=== PATIENT | female | born 1990 | race Caucasian/White ===

== ENCOUNTER 2019-10-29 12:49 | Emergency (ER) | payer SELFPAY ==
[2019-10-29 13:03] VITALS: BMI 41.5
[2019-10-29 13:06] VITALS: BP 99/72; PULSE 75; RESP 16; TEMP 37.1; O2SAT 97
[2019-10-29 13:53] LABS: HCG Qualitative Urine. Negative (Negative)
[2019-10-29 13:54] LABS: Urine Color Brown (Yellow)
[2019-10-29 13:55] LABS: Add Urine Microscopic? YES; Bilirubin Urine Neg (NEGATIVE); Blood Urine 3+ (Negative); Glucose Urine UA Norm (Normal); Ketones Urine Negative (Negative); Leukocyte Esterase Urine Negative (Negative); Nitrate Urine Negative (Negative); Protein Urine 1+ (Negative); Specific Gravity, Urine 1.025 (1.005-1.030); Urine Appearance Cloudy (CLEAR); Urobilinogen Urine Norm (Negative)
[2019-10-29 14:04] LABS: Bacteria Urine 1+; Mucus Urine 1+; RBC Urine >100 /hpf (0-2)
[2019-10-29 14:05] LABS: Add Urine Culture? Yes
[2019-10-29 14:22] LABS: Basophils % 0.5 %; Eosinophils # 0.1 10^3/uL (0.0-0.8); Eosinophils % 1.5 %; Hematocrit 42.4 % (37.0-47.0); Hemoglobin 13.4 g/dL (11.5-15.3); Lymphocytes # 2.6 10^3/uL (0.8-4.8); Lymphocytes % 31.6 %; Mean Corpuscular HGB Conc 31.6 g/dL (30.0-36.0); Mean Corpuscular Hemoglobin 29.3 pg (28.0-34.0); Mean Corpuscular Volume 92.8 fL (81-99); Mean Platelet Volume 10.2 fL (7.4-10.4); Monocytes # 0.5 10^3/uL (0.2-0.9); Monocytes % 5.6 %; Neutrophils % 60.7 %; Nucleated Red Blood Cells % 0 %; Platelet Count 315 10^3/cmm (130-400); Red Blood Count 4.57 10^6/uL (4.1-5.3); Red Cell Distribution Width 12.8 % (12.1-15.1); White Blood Count 8.2 10^3/uL (4.0-10.0)
--- NOTE | 2019-10-29 14:25 | ED_ITS ---
HPI - Female Genitourinary General: Chief complaint: Back Pain/Injury Stated complaint: kidney pain/problems Time Seen by Provider: 10/29/19 14:14 Source: patient Mode of arrival: ambulatory Limitations: no limitations History of Present Illness: HPI Narrative: Patient is a nice 28-year-old female who presents to ED today with complaints of noticing dark urine this morning. She tells me she is also noticed some pain to her lower back although states this is common for her as she often suffers from lower back pain. She tells me she is having some urethral burning with urination and feels like she is going more often. She is not having any flank pain. She has not been running fevers. No history of nephrolithiasis or ureterolithiasis. She has had no recent injury, trauma, recent catheterization. She states LMP was 3 weeks ago and denies vaginal bleeding. She is not having any vaginal discharge. MD elicited complaint: dysuria and other (dark urine, urinary frequency ) Onset (ago): hour(s) Associated symptoms: Deny abdominal pain, nausea or vaginal discharge Date of Last Menstrual Period: 10/15/19 Review of Systems Const: Denies: fever(s), chills or body aches Eyes: Denies: change in vision, blurry vision, floaters or seeing flashes Card: Denies: chest pain Resp: Denies: dyspnea GI: Denies: abdominal pain, nausea, vomiting, diarrhea or change in bowel habits : Reports: dysuria, urinary frequency and hematuria ( dark urine per patient); Denies: flank pain, difficulty voiding, urinary urgency, urinary hesitancy, dribbling, nocturia, oliguria, urinary incontinence, vaginal odor, vaginal bleeding, vaginal discharge or pelvic pain Musc: Reports: back pain (chronic lower back pain) Skin/Breast: Denies: rash PFS ED PFSH: Medical History (Updated 10/29/19 @ 15:17 by RACIEL Singh) Complication of section wound X 2 Social History (Updated 05/09/19 @ 11:35 by Cody Huddleston LPN) Smoking and tobacco status: never smoked Second hand smoke exposure: No Smoking risk assessment/counseling performed?: No Female Reproductive History: Date of last menstrual period: 10/15/19 Physical Exam Const: COMMON NORMALS: no acute distress, patient oriented x3, no limitations and alert HENMT: COMMON NORMALS: normocephalic and atraumatic HEAD & SCALP: normocephalic and atraumatic Resp: COMMON NORMALS: normal respiratory effort and clear to auscultation bilaterally AUSCULTATION: clear to auscultation bilaterally Cardio: COMMON NORMALS: regular rate and regular rhythm RATE: regular rate RHYTHM: regular rhythm GI: COMMON NORMALS: Normal to inspection, nondistended, normoactive bowel sounds present, Soft to palpation, non-tender, No hepatosplenomegaly present and no masses PALPATION: Yes Soft to palpation and Yes No hepatosplenomegaly present : COMMON NORMALS: Yes no CVA tenderness BLADDER/KIDNEY EXAM: Yes no CVA tenderness Back/Pelvis: COMMON NORMALS: no CVA tenderness, thoracic and lumbar spine normal to inspection, no thoracic nor lumbar tenderness, thoraco-lumbar ROM normal and straight leg raise negative bilaterally OTHER: pain in soft tissues across lower back-states this is where she chronically has pain-reports maybe a little worse than baseline Neuro: COMMON NORMALS: patient oriented x3 SENSORIUM/ORIENTATION: Yes alert Course Vital Signs: Vital signs: Vital Signs Temperature 98.8 F 10/29/19 13:06 Pulse Rate 75 10/29/19 13:06 Respiratory Rate 16 10/29/19 13:06 Blood Pressure 99/72 10/29/19 13:06 Pulse Oximetry 97 10/29/19 13:06 MDM - Female MDM Narrative: Medical decision making narrative: Patient clinically appears well. She is not febrile or tachycardic. She has a normal white count. BUN and creatinine are non-concerning at this time. Urine does have gross hematuria. She does have 1+ bacteria, 1+ mucus, and 5-10 WBC. Although this is not overwhelmingly suspicious for UTI this is the most common explanation for her hematuria. She does endorse dysuria and urinary frequency as well. Discussed treating patient with a round of antibiotics and if symptoms do not improve then she needs to follow-up with PCP and see if a referral to urology might be indicated for cystoscopy. Return to ED precautions given. Lab Data: Labs: Lab Results 10/29/19 10/29/19 10/29/19 Range/Units 13:10 13:10 14:15 WBC 8.2 (4.0-10.0) 10^3/ uL RBC 4.57 (4.1-5.3) 10^6/u L Hgb 13.4 (11.5-15.3) g/dL Hct 42.4 (37.0-47.0) % MCV 92.8 (81-99) fL MCH 29.3 (28.0-34.0) pg MCHC 31.6 (30.0-36.0) g/dL RDW 12.8 (12.1-15.1) % Plt Count 315 (130-400) 10^3/c mm MPV 10.2 (7.4-10.4) fL Neut % (Auto) 60.7 % Lymph % (Auto) 31.6 % [place] % (Auto) 5.6 % Eos % (Auto) 1.5 % Baso % (Auto) 0.5 % Neut # (Auto) 5.0 (1.8-7.7) 10^3/u L Lymph # (Auto) 2.6 (0.8-4.8) 10^3/u L [place] # (Auto) 0.5 (0.2-0.9) 10^3/u L Eos # (Auto) 0.1 (0.0-0.8) 10^3/u L Baso # (Auto) 0.0 (0.0-0.1) 10^3/u L Nucleated RBC % (a uto) 0 % Nucleated RBCs # 0.0 /100WBC Sodium (136-145) mmol/L Potassium (3.5-5.1) mmol/L Chloride (98-107) mmol/L Carbon Dioxide (22-29) mmol/L Anion Gap (5-19) BUN (6-20) mg/dL Creatinine (0.5-0.9) mg/dL GFR Calculation (90-130) mL/min Glucose (65-115) mg/dL Calculated Osmolal ity (285-295) mOsm/k g Calcium (8.5-10.5) mg/dL Total Bilirubin (0.15-1.2) mg/dL AST (0-32) U/L ALT (0-33) U/L Alkaline Phosphata se (35-105) IU/L Total Protein (6.6-8.7) g/dL Albumin (3.5-5.2) g/dL Globulin (1.3-4.6) g/dL HCG, Qual Negative (Negative) Urine Color Brown (Yellow) Urine Appearance Cloudy (CLEAR) Urine pH 5.0 (5-7) Ur Specific Gravit y 1.025 (1.005-1.030) Urine Protein 1+ H (Negative) Urine Glucose (UA) Norm (Normal) Urine Ketones Negative (Negative) Urine Blood 3+ H (Negative) Urine Nitrate Negative (Negative) Urine Bilirubin Neg (NEGATIVE) Urine Urobilinogen Norm (Negative) mg/dL Ur Leukocyte Rhea ase Negative (Negative) Urine RBC >100 H (0-2) /hpf Urine WBC 5-10 H (0-5) /hpf Ur Squamous Epith Cells 5-10 H (0-5) Amorphous Sediment Not Reportable Urine Bacteria 1+ H (NONE) Urine Mucus 1+ 07//20 Range/Units 14:15 WBC (4.0-10.0) 10^3/ uL RBC (4.1-5.3) 10^6/u L Hgb (11.5-15.3) g/dL Hct (37.0-47.0) % MCV (81-99) fL MCH (28.0-34.0) pg MCHC (30.0-36.0) g/dL RDW (12.1-15.1) % Plt Count (130-400) 10^3/c mm MPV (7.4-10.4) fL Neut % (Auto) % Lymph % (Auto) % [place] % (Auto) % Eos % (Auto) % Baso % (Auto) % Neut # (Auto) (1.8-7.7) 10^3/u L Lymph # (Auto) (0.8-4.8) 10^3/u L [place] # (Auto) (0.2-0.9) 10^3/u L Eos # (Auto) (0.0-0.8) 10^3/u L Baso # (Auto) (0.0-0.1) 10^3/u L Nucleated RBC % (a uto) % Nucleated RBCs # /100WBC Sodium 136 (136-145) mmol/L Potassium 4.3 (3.5-5.1) mmol/L Chloride 102 (98-107) mmol/L Carbon Dioxide 23 (22-29) mmol/L Anion Gap 15.3 (5-19) BUN 14 (6-20) mg/dL Creatinine 1.1 H (0.5-0.9) mg/dL GFR Calculation 59.1 L (90-130) mL/min Glucose 92 (65-115) mg/dL Calculated Osmolal ity 278 L (285-295) mOsm/k g Calcium 9.4 (8.5-10.5) mg/dL Total Bilirubin 0.2 (0.15-1.2) mg/dL AST 19 (0-32) U/L ALT 18 (0-33) U/L Alkaline Phosphata se 39 (35-105) IU/L Total Protein 7.6 (6.6-8.7) g/dL Albumin 4.4 (3.5-5.2) g/dL Globulin 3.2 (1.3-4.6) g/dL HCG, Qual (Negative) Urine Color (Yellow) Urine Appearance (CLEAR) Urine pH (5-7) Ur Specific Gravit y (1.005-1.030) Urine Protein (Negative) Urine Glucose (UA) (Normal) Urine Ketones (Negative) Urine Blood (Negative) Urine Nitrate (Negative) Urine Bilirubin (NEGATIVE) Urine Urobilinogen (Negative) mg/dL Ur Leukocyte Rhea ase (Negative) Urine RBC (0-2) /hpf Urine WBC (0-5) /hpf Ur Squamous Epith Cells (0-5) Amorphous Sediment Urine Bacteria (NONE) Urine Mucus Discharge Plan Discharge Patient Disposition: Home, Self-Care Clinical Impression: Acute cystitis with hematuria Condition: Stable Prescriptions: New Bactrim DS 800-160 mg tablet 1 tab PO BID 7 Days Qty: 14 RF: 0 No Action cyanocobalamin (vitamin B-12) [Vitamin B-12] 500 mcg tablet 500 mcg PO QAM RF: 0 sertraline [Zoloft] 100 mg tablet 100 mg PO DAILY Qty: 30 RF: 2 hydroxyzine HCl 10 mg tablet 10 mg PO TID PRN (Reason: anxiety) Qty: 90 RF: 2 Nexplanon 68 mg implant 1 implant SUBDERMAL .Once/3 yrs RF: 0 hydroxyzine pamoate 50 mg capsule 50 mg PO BEDTIME PRN (Reason: insomnia) RF: 0 Discharge Orders: Discharge Order (Routine); Ordered 10/29/19 Ordered By: Cammy Paul Referrals: Rehana Jones MD [Primary Care Provider] - Patient Instructions: Urinary Tract Infection in Women (ED), Dysuria (ED) Activity Restrictions/Additional Instructions: As discussed please follow-up with primary care provider if symptoms do not begin to improve despite antibiotic use. Please return to the emergency department for worsening pain, flank pain, fevers, nausea/vomiting, any other concerns you may have. Discharge Date/Time: 10/29/19 15:26 Coding Level of Care Code ED Scientific Glass Blower for Chg Fwd Exam Detailed
[2019-10-29 14:39] LABS: Alanine Aminotransferase 18 U/L (0-33); Albumin Level 4.4 g/dL (3.5-5.2); Alkaline Phosphatase 39 IU/L (35-105); Anion Gap 15.3 (5-19); Blood Urea Nitrogen 14 mg/dL (6-20); Calcium 9.4 mg/dL (8.5-10.5); Carbon Dioxide 23 mmol/L (22-29); Chloride 102 mmol/L (98-107); Globulin 3.2 g/dL (1.3-4.6); Glomerular Filtration Rate 59.1 mL/min (90-130); Glucose 92 mg/dL (65-115); Osmolality Calculated 278 mOsm/kg (285-295); Potassium 4.3 mmol/L (3.5-5.1); Sodium 136 mmol/L (136-145); Total Bilirubin 0.2 mg/dL (0.15-1.2); Total Protein 7.6 g/dL (6.6-8.7)
[2019-10-29 14:59] LABS: Aspartate Amino Transferase 19 U/L (0-32)
[2019-10-29 15:25] VITALS: BP 113/72; PULSE 80; RESP 16
== END 2019-10-29 15:26 | disposition home or self-care (01) ==
PROVIDERS: Emergency Medicine; Emergency Provider Physician Assistant; PCP Family Medicine
DX: N30.01 Acute cystitis with hematuria (principal)
CPT/HCPCS: 12345; 36415; 80053; 81001; 81003; 81025; 85025; 87086; 99281; 99282

== ENCOUNTER → 2020-03-07 13:30 | Outpatient (BNVA) | payer OTHER, SELFPAY | PROVIDERS: Visit Provider Nurse Practitioner Family | DX: Z20.828 Contact with and (suspected) exposure to other viral communicable diseases (principal); Z11.59 Encounter for screening for other viral diseases | CPT/HCPCS: 87635 ==

== ENCOUNTER 2020-10-28 12:36 | Outpatient (CLI) | payer OTHER, SELFPAY ==
--- NOTE | 2020-10-28 12:43 | XR_ITS ---
WS: [id number] Right scapula, 2 views, 10/28/2020 Clinical Data: pain after injury Comparison: None. Findings: No scapular fractures are seen. The AC joint and shoulder joint are unremarkable. The adjacent right ribs are normal. The soft tissues are unremarkable. XR/[place] [id number] Impression: Negative right scapula.
== END 2020-10-28 12:37 | disposition home or self-care (01) ==
LOC: RAD 12:40
PROVIDERS: Visit Provider Nurse Practitioner
DX: M89.8X1 Other specified disorders of bone, shoulder (principal)
CPT/HCPCS: 73010

== ENCOUNTER 2021-03-29 07:21 | Emergency (ER) | payer MEDICAID, SELFPAY ==
[2021-03-29 07:32] VITALS: BP 131/94; PULSE 77; RESP 18; TEMP 37.3; O2SAT 99; BMI 42.3
--- NOTE | 2021-03-29 07:50 | ED_ITS ---
HPI - Extremity Problem General: Chief complaint: Extremity Problem,Nontraumatic Stated complaint: NUMBNESS IN R FOOT & KNEE Time Seen by Provider: 03/29/21 07:22 Source: patient Mode of arrival: ambulatory Limitations: no limitations History of Present Illness: HPI Narrative: Patient is a 30-year-old female who presents to ED today with complaint of numbness to her right lower extremity. Patient states approximately 4 days ago she began noticing some numbness to the dorsum of her right foot. She states numbness has then spread proximally affecting the lateral aspect of her right lower leg. She has not noticed any redness or swelling. No pallor or coolness to the extremity. She has not had any injury or trauma. She does not complain of calf pain. She has no compl aints of back pain. Patient states her brother is a FIGHTING VEHICLE INFANTRYMAN and stated he was concerned for possible diabetes or a DVT thus prompting her visit today. Patient does state diabetes runs in her family but she has not been tested recently for this. She does not have a PCP. Patient has not noticed any weakness to the lower extremities. She states there has been a few times where she has tripped over her own ankle secondary to the paresthesias. No recent illness/no fevers. MD Complaint: other (R LE numbness) Onset (ago): day(s) Location: right and lower extremity Radiation: proximal Relieving factors: nothing Exacerbating factors: nothing Associated symptoms: Reports no associated symptoms; Deny chest pain, fever(s) or rash Review of Systems Const: Denies: fever(s), chills, body aches or fatigue Card: Denies: chest pain Resp: Denies: dyspnea GI: Denies: abdominal pain, nausea, vomiting or diarrhea Musc: Denies: neck pain, back pain, extremity pain, extremity swelling, joint pain, joint swelling, joint redness, joint warmth, joint stiffness, limited range of motion, muscle cramps, muscle weakness or decrease in muscle mass Skin/Breast: Denies: rash Neuro: Reports: numbness in extremities (R LE) and sensory changes; Denies: headache(s), weakness in extremities, lack of coordination, difficulty walking, frequent falls or dizziness [facility] ED PFSH: Medical History Complication of section wound X 2 Family History Grandmother Bleeding disorder maternal Diabetes maternal Stroke paternal Mother Diabetes Heart disease Denies family history of Colon cancer Ovarian cancer Clotting disorder Hyperlipidemia Breast cancer Anesthesia complication Hypertension Uterine cancer Thyroid condition Social History Smoking and tobacco status: never smoked Alcohol intake: never Female Reproductive History: Date of last menstrual period: 10/15/19 Physical Exam Const: COMMON NORMALS: no acute distress, patient oriented x3, no limitations and alert GENERAL APPEARANCE: cooperative NUTRITIONAL APPEARANCE: obese morbidly obese ORIENTATION/CONSCIOUSNESS: Yes awake, Yes oriented to person, Yes oriented to place and Yes oriented to time Back/Pelvis: COMMON NORMALS: thoracic and lumbar spine normal to inspection, no thoracic nor lumbar tenderness and thoraco-lumbar ROM normal LUMBAR SPINE/LOWER BACK: Yes normal to inspection and Yes straight leg raise negative bilaterally PELVIS: Yes buttocks normal SACROILIAC JOINTS: Yes SI joints normal Extremity: COMMON NORMALS: normal to inspection, full ROM, capillary refill normal, no joint enlargement, no clubbing, cyanosis or edema, no calf tenderness and no pedal edema GENERAL: Yes normal exam except as noted Neuro: RAYMUNDO COMA SCALE: document GCS findings [place]an coma scale eye opening: Spontaneous Raymundo coma scale verbal response: Orientated Raymundo coma scale motor response: Obey commands Raymundo coma scale total score: 15 COMMON NORMALS: patient oriented x3, moves all extremities and no focal motor deficits SENSORIUM/ORIENTATION: Yes alert, Yes oriented to person, Yes oriented to place and Yes oriented to time GAIT: Yes Normal gait present MOTOR EXAM: 5/5 motor strength present throughout (slightly decreased strength of R dorsiflexion) DEEP TENDON REFLEXES: Right patellar reflex intensity grade: 2+ and Left patellar reflex intensity grade: 2+ OTHER: patient complains of sensory alterations to the R dorsal/plantar foot and anteriolateral R lower leg below the knee; medial territories seem unaffected there is no swelling to affected leg, no calf pain/negative Thu's, DP/PT pulses and cap refill present and equal bilaterally no foot drop but she does have decreased strength of R dorsiflexion when compared to L, remainder of strength to bilateral LEs appear equal Skin: COMMON NORMALS: no rashes or lesions noted GENERAL SKIN EXAM: no rashes or lesions noted TRAUMA: no lacerations or abrasions Course Vital Signs: Vital signs: Vital Signs Temperature 99.1 F 03/29/21 07:32 Pulse Rate 77 03/29/21 07:32 Respiratory Rate 18 03/29/21 07:32 Blood Pressure 131/94 03/29/21 07:32 Pulse Oximetry 99 03/29/21 07:32 MDM - Extremity (Nontraumatic) MDM Narrative: Medical decision making narrative: Based on patient's history and physical examination I would have a concern for a peroneal/fibular nerve compression. I do not have any concern for arterial occlusion, DVT, acute inflammatory demyelinating process, or infectious etiology. Less likely lumbosacral pathology or diabetic neuropathy. I will have CM set her up with a PCP for further evaluation and possible referral for nerve conduction studies. Return to ED precautions given. Discharge Plan Discharge Patient Disposition: Home Clinical Impression: Neuropathy of right lower extremity Condition: Stable Prescriptions: No Action naproxen 500 mg tablet 500 mg PO BID 10 Days Qty: 20 RF: 0 tizanidine 2 mg capsule 2 mg PO BID PRN (Reason: muscle spasticity) Qty: 7 RF: 0 Discharge Orders: Discharge ED (Routine); Ordered 03/29/21 Ordered By: Cammy Paul Coding Level of Care Code ED Consulting Engineer for Chg Fwd Exam Detailed
--- NOTE | 2021-03-29 15:24 | DCPLANNER ---
manager of maintenance had message to speak with patient about getting established with a primary care physician. manager of maintenance called phone number [phone], unable to speak with patient and unable to leave a voicemail due to no voicemail box set up at this time.
== END 2021-03-29 08:03 | disposition home or self-care (01) ==
PROVIDERS: Emergency Provider Physician Assistant
DX: G62.9 Polyneuropathy, unspecified (principal)
CPT/HCPCS: 99281

== ENCOUNTER 2022-02-07 02:06 | Emergency (ER) | payer BC, MEDICAID, SELFPAY ==
--- NOTE | 2022-02-07 02:07 | ECG_ITS ---
[facility] Test Date: 2022-02-07 Pat Name: Hillary Watson Department: Room: Gender: Female Survey Data Technician: : 1990 Requested By: Elvis Mora Order Number: [id number] Holli MD: Jonathan Bartlett M.D. Measurements Intervals [place] Rate: 78 P: 5 AR: 148 QRS: 71 QRSD: 97 T: -11 QT: 337 QTc: 385 Interpretive Statements SINUS RHYTHM NONSPECIFIC T-WAVE ABNORMALITY Compared to ECG 06/16/2015 11:15:38 T-wave abnormality now present Sinus arrhythmia no longer present Electronically Signed On 02-07-2022 17:21:44 CDT by Jonathan Bartlett M.D. [id number]
[2022-02-07 02:10] VITALS: BP 147/104; PULSE 91; RESP 17; TEMP 36.6; O2SAT 97
--- NOTE | 2022-02-07 02:18 | ED_ITS ---
HPI - Chest Pain General: Chief Complaint: Chest Pain Stated Complaint: cp Time Seen by Provider: 02/07/22 02:07 Source: patient Mode of arrival: ambulatory Limitations: no limitations History of Present Illness: 31-year-old female has been having pain in her chest since 6 PM. States been constant she does have some radiation to her back with some slight dyspnea. States pain is currently a 6 out of 10 she denies any fever denies any cough she denies any vomiting or abdominal pain. Associated symptoms: Reports dyspnea; Deny abdominal pain, fever(s), nausea or vomiting Review of Systems Const: Denies: fever(s), chills, body aches or change in appetite Eyes: Denies: blurry vision or eye discomfort ENMT: Denies: throat pain or dental pain Card: Reports: chest pain Resp: Reports: dyspnea GI: Denies: abdominal pain, nausea, vomiting or diarrhea : Denies: dysuria Musc: Denies: neck pain or back pain Skin/Breast: Denies: rash Neuro: Denies: headache(s) Psych: Denies: depression Felipe/Lymph: Denies: easy bruising All/Imm: Denies: urticaria PFSH ED PFSH: Medical History Complication of section wound X 2 Family History Grandmother Bleeding disorder maternal Diabetes maternal Stroke paternal Mother Diabetes Heart disease Denies family history of Colon cancer Ovarian cancer Clotting disorder Hyperlipidemia Breast cancer Anesthesia complication Hypertension Uterine cancer Thyroid condition Social History Smoking and tobacco status: never smoked Alcohol intake: never Female Reproductive History: Date of last menstrual period: 10/15/19 Physical Exam Const: COMMON NORMALS: no acute distress, patient oriented x3 and healthy appearing HENMT: COMMON NORMALS: normocephalic and atraumatic HEAD & SCALP: normocephalic and atraumatic Eye: COMMON NORMALS: Equal, round and reactive pupils present and EOMs intact bilaterally PUPIL: Yes Equal, round and reactive pupils present Neck/C-Spine: COMMON NORMALS: full ROM and supple Chest: COMMONS NORMALS: normal inspection of the chest and normal palpation of entire chest wall Resp: COMMON NORMALS: normal respiratory effort, No retractions, No use of accessory muscles and clear to auscultation bilaterally AUSCULTATION: clear to auscultation bilaterally Cardio: COMMON NORMALS: regular rate, regular rhythm and No murmurs present (Cardio) RATE: regular rate RHYTHM: regular rhythm GI: COMMON NORMALS: Normal to inspection, nondistended, normoactive bowel sounds present, Soft to palpation, non-tender and no masses PALPATION: Yes Soft to palpation Extremity: COMMON NORMALS: normal to inspection and full ROM Neuro: COMMON NORMALS: patient oriented x3, moves all extremities and no focal motor deficits Psych: COMMON NORMALS: mental status grossly normal, Normal thought process present and cooperative THOUGHT PROCESS: Normal thought process present Skin: COMMON NORMALS: no rashes or lesions noted and no wounds GENERAL SKIN EXAM: no rashes or lesions noted Course 2 Vital Signs: Vital signs: Vital Signs Temperature 97.9 F 02/07/22 02:10 Pulse Rate 101 H 02/07/22 03:22 Respiratory Rate 18 02/07/22 03:22 Blood Pressure 161/89 02/07/22 03:22 Pulse Oximetry 99 02/07/22 03:22 Oxygen Delivery Me thod 02/07/22 02:10 MDM - Chest Pain Medical Decision Making Patient presents for chest pain atypical in nature could be a gastritis her pain was relieved with a GI cocktail blood work is normal we will start her on Protonix she is stable for discharge she is followed with PCP and return if worsening she understands agrees plan. Lab Data : 02/07/22 02:30 02/07/22 03:12 Radiology Impressions Chest X-Ray 02/07/22 02:35 IMPRESSION: No chest radiographic evidence of acute cardiopulmonary disease. Laboratory Results WBC 8.4 10^3/uL (4.0-10.0) 02/07/22 02:30 RBC 4.85 10^6/uL (4.1-5.3) 02/07/22 02:30 Hgb 14.7 g/dL (11.5-15.3) 02/07/22 02:30 Hct 44.2 % (37.0-47.0) 02/07/22 02:30 MCV 91.1 fl (81-99) 02/07/22 02:30 MCH 30.3 pg (28.0-34.0) 02/07/22 02:30 MCHC 33.3 g/dL (30.0-36.0) 02/07/22 02:30 RDW 13.1 % (12.1-15.1) 02/07/22 02:30 Plt Count 379 10^3/cmm (130-400) 02/07/22 02:30 MPV 10.6 fL (7.4-10.4) H 02/07/22 02:30 Neut % (Auto) 60.8 % 02/07/22 02:30 Lymph % (Auto) 30.7 % 02/07/22 02:30 [place] % (Auto) 5.3 % 02/07/22 02:30 Eos % (Auto) 2.4 % 02/07/22 02:30 Baso % (Auto) 0.6 % 02/07/22 02:30 Neut # (Auto) 5.13 10^3/uL (1.8-7.7) 02/07/22 02:30 Lymph # (Auto) 2.6 10^3/uL (0.8-4.8) 02/07/22 02:30 [place] # (Auto) 0.5 10^3/uL (0.2-0.9) 02/07/22 02:30 Eos # (Auto) 0.2 10^3/uL (0.0-0.8) 02/07/22 02:30 Baso # (Auto) 0.1 10^3/uL (0.0-0.1) 02/07/22 02:30 Nucleated RBC % (auto) 0 % 02/07/22 02:30 Nucleated RBCs # 0.0 /100WBC 02/07/22 02:30 D-Dimer 0.31 ug/mIFEU (0-0.59) 02/07/22 03:12 Sodium 137 mmol/L (136-145) 02/07/22 03:12 Potassium 3.7 mmol/L (3.5-5.1) 02/07/22 03:12 Chloride 104 mmol/L (98-107) 02/07/22 03:12 Carbon Dioxide 22 mmol/L (22-29) 02/07/22 03:12 Anion Gap 14.7 (5-19) 02/07/22 03:12 BUN 9 mg/dL (6-20) 02/07/22 03:12 Creatinine 0.9 mg/dL (0.5-0.9) 02/07/22 03:12 GFR Calculation 73.0 mL/min (90-130) L 02/07/22 03:12 Glucose 116 mg/dL (65-115) H 02/07/22 03:12 Calculated Osmolality 284 mOsm/kg (285-295) L 02/07/22 03:12 Calcium 9.8 mg/dL (8.5-10.5) 02/07/22 03:12 Total Bilirubin 0.2 mg/dL (0.15-1.2) 02/07/22 03:12 AST 16 U/L (0-32) 02/07/22 03:12 ALT 21 U/L (0-33) 02/07/22 03:12 Alkaline Phosphatase 57 U/L (35-105) 02/07/22 03:12 Troponin T Baseline 6 ng/L (0-10) 02/07/22 03:12 Total Protein 7.3 g/dL (6.6-8.7) 02/07/22 03:12 Albumin 4.1 g/dL (3.5-5.2) 02/07/22 03:12 Globulin 3.2 g/dL (1.3-4.6) 02/07/22 03:12 Lipase 38 U/L (13-60) 02/07/22 03:12 HCG, Qual Negative (Negative) 02/07/22 02:30 EKG Data EKG 1: I personally reviewed and interpreted this EKG as follows: EKG interpretation date: 02/07/22 EKG interpretation time: 02:19 Interpretation: Normal sinus rhythm heart rate [address] or T wave normalities QRS 97 QTc 370 Discharge Plan Discharge Patient Disposition: Home Clinical Impression: Chest pain Condition: Stable Prescriptions: New pantoprazole [Protonix] 40 mg tablet,delayed release (DR/EC) 40 mg PO DAILY Qty: 60 0RF No Action naproxen 500 mg tablet 500 mg PO BID 10 Days Qty: 20 0RF tizanidine 2 mg capsule 2 mg PO BID PRN (Reason: muscle spasticity) Qty: 7 0RF Discharge Orders: Discharge ED (Routine); Ordered 02/07/22 Ordered By: Korby Morgan Discharge Diet: Advance as tolerated Discharge Activity: Resume usual activity Patient Instructions: Chest Pain (ED) Coding Level of Care Code ED Precision Structural Metal Fitter for Yohana Fwron Exam Comprehensive
[2022-02-07 02:33] LABS: Basophils # 0.1 10^3/uL (0.0-0.1); Basophils % 0.6 %; Eosinophils # 0.2 10^3/uL (0.0-0.8); Eosinophils % 2.4 %; Hematocrit 44.2 % (37.0-47.0); Hemoglobin 14.7 g/dL (11.5-15.3); Lymphocytes # 2.6 10^3/uL (0.8-4.8); Lymphocytes % 30.7 %; Mean Corpuscular HGB Conc 33.3 g/dL (30.0-36.0); Mean Corpuscular Hemoglobin 30.3 pg (28.0-34.0); Mean Corpuscular Volume 91.1 fl (81-99); Mean Platelet Volume 10.6 fL (7.4-10.4); Monocytes # 0.5 10^3/uL (0.2-0.9); Monocytes % 5.3 %; Neutrophils # 5.13 10^3/uL (1.8-7.7); Neutrophils % 60.8 %; Nucleated Red Blood Cells % 0 %; Platelet Count 379 10^3/cmm (130-400); Red Blood Count 4.85 10^6/uL (4.1-5.3); Red Cell Distribution Width 13.1 % (12.1-15.1); White Blood Count 8.4 10^3/uL (4.0-10.0)
--- NOTE | 2022-02-07 02:35 | XRR_ITS ---
PROCEDURE INFORMATION: Exam: XR Chest Exam date and time: 02/07/2022 2:43 AM Age: 31 years old Clinical indication: Pain; Chest pressure; Additional info: Cp TECHNIQUE: Imaging protocol: Radiologic exam of the chest. Views: 1 view. COMPARISON: CR XR chest 1V [id number] 09/28/2016 12:48 PM FINDINGS: Lungs: Normal lung volumes. No interstitial or airspace opacities. Pleural spaces: No pleural effusion. No pneumothorax. Heart/Mediastinum: Normal heart size. Normal mediastinal contour. Midline trachea. Bones/joints: No acute abnormalities. XR/XR chest 1V portable [id number] IMPRESSION: No chest radiographic evidence of acute cardiopulmonary disease.
[2022-02-07] MEDS: lidocaine 2% viscous 15 ML, aluminum-mag hydrox-simethicon 30 ML, sucralfate oral liq 1 GM PO (02:39)
[2022-02-07 02:51] LABS: HCG, Serum Qual Negative (Negative)
[2022-02-07 03:22] VITALS: BP 161/89; PULSE 101; RESP 18; O2SAT 99
[2022-02-07 03:35] LABS: D Dimer 0.31 ug/mIFEU (0-0.59)
[2022-02-07 03:41] LABS: Alanine Aminotransferase 21 U/L (0-33); Albumin Level 4.1 g/dL (3.5-5.2); Alkaline Phosphatase 57 U/L (35-105); Anion Gap 14.7 (5-19); Aspartate Amino Transferase 16 U/L (0-32); Blood Urea Nitrogen 9 mg/dL (6-20); Calcium 9.8 mg/dL (8.5-10.5); Carbon Dioxide 22 mmol/L (22-29); Chloride 104 mmol/L (98-107); Globulin 3.2 g/dL (1.3-4.6); Glucose 116 mg/dL (65-115); Lipase 38 U/L (13-60); Osmolality Calculated 284 mOsm/kg (285-295); Potassium 3.7 mmol/L (3.5-5.1); Sodium 137 mmol/L (136-145); Total Bilirubin 0.2 mg/dL (0.15-1.2); Total Protein 7.3 g/dL (6.6-8.7); Troponin(5th) Baseline 6 ng/L (0-10)
[2022-02-07 03:51] VITALS: BP 150/94; PULSE 80; RESP 16; O2SAT 96
[2022-02-07 03:56] VITALS: BP 159/104; PULSE 84; RESP 18; O2SAT 96
== END 2022-02-07 03:56 | disposition home or self-care (01) ==
PROVIDERS: Emergency Provider Emergency Medicine
DX: R07.9 Chest pain, unspecified (principal)
CPT/HCPCS: 71045; 80053; 83690; 84484; 84703; 85025; 85378; 93005; 99285

== ENCOUNTER 2022-05-08 23:25 | Emergency (ER) | payer BC, MEDICAID, SELFPAY ==
--- NOTE | 2022-05-08 23:28 | ED_ITS ---
HPI - Abdominal Pain General: Chief Complaint: Chest Pain Stated Complaint: heartburn that won't go away Time Seen by Provider: 05/08/22 23:28 History of Present Illness: 31-year-old female comes in tonight with complaints of worsening heartburn. Patient reports over the last 3 days she has had increased heartburn symptoms. Patient does take pantoprazole daily but continues to have some worsening symptoms. Patient denies any fever, nausea vomiting, or diarrhea. Patient reports no blood in vomit or stool. Patient reports pain is worse at night when she lays flat. Associated Symptoms: Reports heartburn Related Data: Date of Last Menstrual Period: 10/15/19 Review of Systems GI: Reports: abdominal pain and heartburn [facility] ED PFSH: Medical History Complication of section wound X 2 Family History Grandmother Bleeding disorder maternal Diabetes maternal Stroke paternal Mother Diabetes Heart disease Denies family history of Colon cancer Ovarian cancer Clotting disorder Hyperlipidemia Breast cancer Anesthesia complication Hypertension Uterine cancer Thyroid condition Social History Smoking and tobacco status: never smoked Alcohol intake: never Female Reproductive History: Date of last menstrual period: 10/15/19 Physical Exam Const: COMMON NORMALS: alert HENMT: COMMON NORMALS: normocephalic HEAD & SCALP: normocephalic Neck/C-Spine: COMMON NORMALS: full ROM Resp: COMMON NORMALS: normal respiratory effort and clear to auscultation bilaterally AUSCULTATION: clear to auscultation bilaterally Cardio: COMMON NORMALS: regular rate and regular rhythm RATE: regular rate RHYTHM: regular rhythm GI: COMMON NORMALS: Soft to palpation AUSCULTATION: Yes normoactive bowel sounds PALPATION: Yes Soft to palpation and No Tenderness to palpation present (GI) : COMMON NORMALS: Yes no CVA tenderness BLADDER/KIDNEY EXAM: Yes no CVA tenderness Back/Pelvis: COMMON NORMALS: no CVA tenderness Extremity: COMMON NORMALS: normal to inspection and no pedal edema Neuro: SENSORIUM/ORIENTATION: Yes alert Skin: COMMON NORMALS: turgor normal GENERAL SKIN EXAM: turgor normal Course Vital Signs: Vital signs: Vital Signs Temperature 98.3 F 05/08/22 23:35 Pulse Rate 81 05/08/22 23:35 Respiratory Rate 22 H 05/08/22 23:35 Blood Pressure 161/86 05/08/22 23:35 Pulse Oximetry 100 05/08/22 23:35 Oxygen Delivery Me thod 05/08/22 23:35 MDM - Abdominal Pain Medical Decision Making 31-year-old female comes in today for complaints of increasing heartburn. Patient is presently on pantoprazole 40 mg daily but has had worsening symptoms over the last 3 days. Patient reports no fever or blood in vomit or stool. Patient reports pain is epigastric. Patient reports pain does not go to the back or into the shoulder. Patient appears nontoxic. Patient appears no acute distress. Differential diagnosis includes but not limited to gastritis, GERD, h iatal hernia, gallbladder disease, pancreatitis. CBC and CMP were unremarkable. Patient was given a GI cocktail with minimal relief. Then patient was given 10 mg of Reglan. Believe the patient probably has gastritis versus GERD versus hiatal hernia or combination thereof. Recommended follow-up with general surgery/gastroenterology for upper endoscopy for further evaluation. We will increase patient's Protonix to 40 mg twice a day for the next 2 weeks and add Reglan at bedtime for symptoms. Patient reported understanding agreed to plan. Lab Data 05/08/22 23:53 05/08/22 23:53 Labs/Radiology: Laboratory Results WBC 9.6 10^3/uL (4.0-10.0) 05/08/22 23:53 RBC 4.97 10^6/uL (4.1-5.3) 05/08/22 23:53 Hgb 14.6 g/dL (11.5-15.3) 05/08/22 23:53 Hct 44.5 % (37.0-47.0) 05/08/22 23:53 MCV 89.5 fl (81-99) 05/08/22 23:53 MCH 29.4 pg (28.0-34.0) 05/08/22 23:53 MCHC 32.8 g/dL (30.0-36.0) 05/08/22 23:53 RDW 13.2 % (12.1-15.1) 05/08/22 23:53 Plt Count 380 10^3/cmm (130-400) 01/15/23 23:53 MPV 9.8 fL (7.4-10.4) 05/08/22 23:53 Neut % (Auto) 61.9 % 05/08/22 23:53 Lymph % (Auto) 29.6 % 05/08/22 23:53 [place] % (Auto) 5.1 % 05/08/22 23:53 Eos % (Auto) 2.5 % 05/08/22 23:53 Baso % (Auto) 0.5 % 05/08/22 23:53 Neut # (Auto) 5.97 10^3/uL (1.8-7.7) 05/08/22 23:53 Lymph # (Auto) 2.9 10^3/uL (0.8-4.8) 05/08/22 23:53 [place] # (Auto) 0.5 10^3/uL (0.2-0.9) 05/08/22 23:53 Eos # (Auto) 0.2 10^3/uL (0.0-0.8) 05/08/22 23:53 Baso # (Auto) 0.1 10^3/uL (0.0-0.1) 05/08/22 23:53 Nucleated RBC % (auto) 0 % 05/08/22 23:53 Nucleated RBCs # 0.0 /100WBC 05/08/22 23:53 Sodium 134 mmol/L (136-145) L 05/08/22 23:53 Potassium 3.7 mmol/L (3.5-5.1) 05/08/22 23:53 Chloride 102 mmol/L (98-107) 05/08/22 23:53 Carbon Dioxide 22 mmol/L (22-29) 05/08/22 23:53 Anion Gap 13.7 (5-19) 05/08/22 23:53 BUN 11 mg/dL (6-20) 05/08/22 23:53 Creatinine 1.0 mg/dL (0.5-0.9) H 05/08/22 23:53 GFR Calculation 64.7 mL/min (90-130) L 05/08/22 23:53 Glucose 135 mg/dL (65-115) H 05/08/22 23:53 Calculated Osmolality 279 mOsm/kg (285-295) L 05/08/22 23:53 Calcium 9.2 mg/dL (8.5-10.5) 05/08/22 23:53 Total Bilirubin 0.2 mg/dL (0.15-1.2) 05/08/22 23:53 AST 17 U/L (0-32) 05/08/22 23:53 ALT 22 U/L (0-33) 05/08/22 23:53 Alkaline Phosphatase 55 U/L (35-105) 05/08/22 23:53 Total Protein 7.2 g/dL (6.6-8.7) 05/08/22 23:53 Albumin 4.5 g/dL (3.5-5.2) 05/08/22 23:53 Globulin 2.7 g/dL (1.3-4.6) 05/08/22 23:53 Lipase 46 U/L (13-60) 05/08/22 23:53 Discharge Plan Discharge Patient Disposition: Home Clinical Impression: Gastritis Qualifiers: Gastritis type: unspecified gastritis Chronicity: unspecified Gastritis bleeding: without bleeding Qualified Code(s): K29.70 - Gastritis, unspecified, without bleeding Condition: Stable Prescriptions: New pantoprazole 40 mg tablet,delayed release (DR/EC) 40 mg PO BID 14 Days Qty: 28 0RF metoclopramide HCl 10 mg tablet 10 mg PO DAILY Qty: 30 0RF Rx Instructions: take daily with last meal of day No Action naproxen 500 mg tablet 500 mg PO BID 10 Days Qty: 20 0RF tizanidine 2 mg capsule 2 mg PO BID PRN (Reason: muscle spasticity) Qty: 7 0RF Protonix 40 mg tablet,delayed release (DR/EC) 40 mg PO DAILY Qty: 60 0RF Discharge Orders: Discharge ED (Routine); Ordered 05/09/22 Ordered By: Serafin Hill Discharge Diet: As Directed Discharge Activity: Increase activity as tolerated Patient Instructions: Diet for Stomach Ulcers and Gastritis (ED), GERD (Gastroesophageal Reflux Disease) (ED) Activity Restrictions/Additional Instructions: Increase pantoprazole 40 mg to 2 times a day for the next 14 days. Make sure to take the pantoprazole 30 minutes prior to the first meal of the day and the last meal of the day. Take metoclopramide 10 mg in the evening 1 hour before bedtime. Avoid carbonated beverages, eating 2 hours prior to laying down at night, follow-up with primary care for further instructions. Case management will contact you regarding a follow-up with the surgeon for endoscopy for further evaluation of your worsening heartburn. Coding Level of Care Code ED Licensed Physical Therapist for Michelineg Fwd Exam Comprehensive
[2022-05-08 23:35] VITALS: BP 161/86; PULSE 81; RESP 22; TEMP 36.8; O2SAT 100; BMI 42.3
[2022-05-09 00:04] LABS: Basophils # 0.1 10^3/uL (0.0-0.1); Basophils % 0.5 %; Eosinophils # 0.2 10^3/uL (0.0-0.8); Eosinophils % 2.5 %; Hematocrit 44.5 % (37.0-47.0); Hemoglobin 14.6 g/dL (11.5-15.3); Lymphocytes # 2.9 10^3/uL (0.8-4.8); Lymphocytes % 29.6 %; Mean Corpuscular HGB Conc 32.8 g/dL (30.0-36.0); Mean Corpuscular Hemoglobin 29.4 pg (28.0-34.0); Mean Corpuscular Volume 89.5 fl (81-99); Mean Platelet Volume 9.8 fL (7.4-10.4); Monocytes # 0.5 10^3/uL (0.2-0.9); Monocytes % 5.1 %; Neutrophils # 5.97 10^3/uL (1.8-7.7); Neutrophils % 61.9 %; Nucleated Red Blood Cells % 0 %; Platelet Count 380 10^3/cmm (130-400); Red Blood Count 4.97 10^6/uL (4.1-5.3); Red Cell Distribution Width 13.2 % (12.1-15.1); White Blood Count 9.6 10^3/uL (4.0-10.0)
[2022-05-09 00:22] LABS: Alanine Aminotransferase 22 U/L (0-33); Albumin Level 4.5 g/dL (3.5-5.2); Alkaline Phosphatase 55 U/L (35-105); Anion Gap 13.7 (5-19); Aspartate Amino Transferase 17 U/L (0-32); Blood Urea Nitrogen 11 mg/dL (6-20); Calcium 9.2 mg/dL (8.5-10.5); Carbon Dioxide 22 mmol/L (22-29); Chloride 102 mmol/L (98-107); Globulin 2.7 g/dL (1.3-4.6); Glomerular Filtration Rate 64.7 mL/min (90-130); Glucose 135 mg/dL (65-115); Lipase 46 U/L (13-60); Osmolality Calculated 279 mOsm/kg (285-295); Potassium 3.7 mmol/L (3.5-5.1); Sodium 134 mmol/L (136-145); Total Bilirubin 0.2 mg/dL (0.15-1.2); Total Protein 7.2 g/dL (6.6-8.7)
[2022-05-09] MEDS: lidocaine 2% viscous 15 ML, aluminum-mag hydrox-simethicon 30 ML, sucralfate oral liq 1 GM PO (00:24)
[2022-05-09] MEDS: metoclopramide 5 mg/mL SDV 2 mL 10 MG IM (00:57)
[2022-05-09 01:05] VITALS: BP 161/90; PULSE 76; RESP 16; O2SAT 99
--- NOTE | 2022-05-09 10:59 | DCPLANNER ---
Addendum entered by Reanna Cunningham 06/22/22 07:55: Patient had an appointment scheduled with general surgery - patient did attend appointment Addendum entered by Reanna Cunningham 05/11/22 12:12: Patient has a follow up appointment scheduled for Tuesday, May 31, 2022 at 2:20 with at general surgery. Clinic will call patient with appointment information. Original Note: requirements manager had message to schedule a follow up appointment for patient wiht general surgery. requirements manager sent patients information to the front office staff at general surgery. Patients information will be printed and reviewed. Clinic will call patient with appointment information.
== END 2022-05-09 01:06 | disposition home or self-care (01) ==
PROVIDERS: Emergency Provider Nurse Practitioner Family
DX: K29.70 Gastritis, unspecified, without bleeding (principal)
CPT/HCPCS: 80053; 83690; 85025; 96372; 99284; J2765

== ENCOUNTER 2022-05-29 00:44 | Emergency (ER) | payer BC, MEDICAID, SELFPAY ==
[2022-05-29 00:48] VITALS: BP 155/100; PULSE 83; RESP 18; TEMP 36.6; O2SAT 97; BMI 43.0
[2022-05-29 00:54] VITALS: BP 145/96; PULSE 88; RESP 16; O2SAT 98
[2022-05-29 01:33] LABS: Basophils % 0.6 %; Eosinophils # 0.3 10^3/uL (0.0-0.8); Eosinophils % 4.6 %; Hematocrit 44.5 % (37.0-47.0); Hemoglobin 14.1 g/dL (11.5-15.3); Lymphocytes # 1.7 10^3/uL (0.8-4.8); Lymphocytes % 25.2 %; Mean Corpuscular HGB Conc 31.7 g/dL (30.0-36.0); Mean Corpuscular Hemoglobin 28.5 pg (28.0-34.0); Mean Corpuscular Volume 89.9 fl (81-99); Mean Platelet Volume 9.9 fL (7.4-10.4); Monocytes # 0.6 10^3/uL (0.2-0.9); Monocytes % 9.5 %; Neutrophils # 3.93 10^3/uL (1.8-7.7); Neutrophils % 59.9 %; Nucleated Red Blood Cells % 0 %; Platelet Count 356 10^3/cmm (130-400); Red Blood Count 4.95 10^6/uL (4.1-5.3); Red Cell Distribution Width 13.2 % (12.1-15.1); White Blood Count 6.6 10^3/uL (4.0-10.0)
[2022-05-29 01:40] LABS: Add Urine Microscopic? NO; Charge for UA Resulting for Rev
[2022-05-29 01:44] LABS: HCG, Serum Qual Negative (Negative)
[2022-05-29 01:44] LABS: Bilirubin Urine Neg (Negative); Blood Urine Neg (Negative); Glucose Urine UA Norm (Normal); Ketones Urine Negative (Negative); Leukocyte Esterase Urine Negative (Negative); Nitrate Urine Negative (Negative); Protein Urine Neg (Negative); Urine Appearance Clear (CLEAR); Urine Color Yellow (Yellow); Urobilinogen Urine Neg (Negative); pH Urine 5 (5-7)
--- NOTE | 2022-05-29 01:44 | USR_ITS ---
PROCEDURE INFORMATION: Exam: US Abdomen, Limited; Right Upper Quadrant Exam date and time: 05/29/2022 1:54 AM Age: 31 years old Clinical indication: Abdominal pain; Epigastric; Additional info: Ruq and epigastric pain TECHNIQUE: Imaging protocol: Real time ultrasound of the abdomen with image documentation. Limited exam focused on the right upper quadrant. COMPARISON: CT abdomen pelvis w con* [id number] 10/11/2017 12:29 PM FINDINGS: Liver: Unremarkable liver, no focal abnormality. Gallbladder: At least 1 or 2 shadowing gallstones are visible within the gallbladder. The stones appear to measure about 10-11 mm in size. No gallbladder wall thickening or pericholecystic fluid. The gallbladder does not appear abnormally distended at this time. Biliary ducts: No biliary dilation, common duct measures 3.0 mm. Pancreas: Visible pancreas unremarkable. Right kidney: Images of the right kidney show no hydronephrosis. US/US gall bladder [id number] IMPRESSION: 1. Cholelithiasis, details above. 2. No biliary tree dilation. 3. Other findings discussed above.
--- NOTE | 2022-05-29 01:45 | ED_ITS ---
HPI - Abdominal Pain General: Chief Complaint: Abdominal Pain Stated Complaint: abdomen pain Time Seen by Provider: 05/29/22 01:27 Source: patient History of Present Illness: 31-year-old female with 2 to 3 days of epigastric pain radiating into her back. She has had the symptoms before. They were much worse tonight and woke her from sleep. Pain is a bit different and that it does not exactly feel like heartburn this evening she says. She has a surgery appointment in the near future for follow-up and possible endoscopy. She has been on Protonix. She is nauseated but has not vomited. No fever. No blood in the stool. No melena. MD elicited complaint: abdominal pain Pertinent past history: other Onset (ago): hour(s) Pain Consistency: constant Location: Epigastric and RUQ Quality: stabbing and aching Radiation: back Migration to: no migration Exacerbating factors: movement Relieving factors: nothing Associated Symptoms: Reports dyspepsia and nausea; Denies chills, diarrhea, fever(s), hematochezia, hematuria, hematemesis and vomiting Related Data: Date of Last Menstrual Period: 10/15/19 Review of Systems Const: Denies: fever(s) or chills Card: Denies: chest pain Resp: Denies: dyspnea GI: Reports: abdominal pain and nausea; Denies: vomiting, hematemesis, diarrhea or hematochezia : Denies: hematuria PFSH ED PFSH: Medical History Complication of section wound X 2 Family History Grandmother Bleeding disorder maternal Diabetes maternal Stroke paternal Mother Diabetes Heart disease Denies family history of Colon cancer Ovarian cancer Clotting disorder Hyperlipidemia Breast cancer Anesthesia complication Hypertension Uterine cancer Thyroid condition Social History Smoking and tobacco status: never smoked Alcohol intake: never Female Reproductive History: Date of last menstrual period: 10/15/19 Physical Exam HENMT: COMMON NORMALS: normocephalic and atraumatic HEAD & SCALP: normocephalic and atraumatic Eye: COMMON NORMALS: Equal, round and reactive pupils present and EOMs intact bilaterally PUPIL: Yes Equal, round and reactive pupils present Chest: CHEST: Yes Symmetrical chest wall rise Resp: COMMON NORMALS: normal respiratory effort, No use of accessory muscles and clear to auscultation bilaterally AUSCULTATION: clear to auscultation bilaterally Cardio: COMMON NORMALS: regular rate and regular rhythm RATE: regular rate RHYTHM: regular rhythm GI: COMMON NORMALS: Normal to inspection, nondistended, normoactive bowel sounds present and Soft to palpation PALPATION: Yes Soft to palpation and Yes Tenderness to palpation present (GI) (epigastric) Details: RUQ Extremity: COMMON NORMALS: no pedal edema Neuro: DANIEL COMA SCALE: document GCS findings [place] coma scale eye opening: Spontaneous [place] coma scale verbal response: Orientated [place] coma scale motor response: Obey commands Daniel coma scale total score: 15 Course Vital Signs: Vital signs: Vital Signs Temperature 97.9 F 05/29/22 00:48 Pulse Rate 72 05/29/22 01:54 Respiratory Rate 18 05/29/22 01:54 Blood Pressure 145/96 05/29/22 00:54 Pulse Oximetry 95 05/29/22 01:54 Oxygen Delivery Me thod 05/29/22 01:54 MDM - Abdominal Pain Medical Decision Making Patient's vitals are stable. She is afebrile. CBC is normal CRP is 3. Liver enzymes are normal. Ultrasound shows no biliary tree dilatation. She does have cholelithiasis, but no evidence of cholecystitis. Symptoms are more consistent with gastritis or esophagitis. We will add Carafate. She has an appointment with outpatient surgery. Lab Data 05/29/22 01:13 05/29/22 01:13 Labs/Radiology: Radiology Impressions Gallbladder Ultrasound 05/29/22 01:44 IMPRESSION: 1. Cholelithiasis, details above. 2. No biliary tree dilation. 3. Other findings discussed above. Laboratory Results WBC 6.6 10^3/uL (4.0-10.0) 05/29/22 01:13 RBC 4.95 10^6/uL (4.1-5.3) 05/29/22 01:13 Hgb 14.1 g/dL (11.5-15.3) 05/29/22 01:13 Hct 44.5 % (37.0-47.0) 05/29/22 01:13 MCV 89.9 fl (81-99) 05/29/22 01:13 MCH 28.5 pg (28.0-34.0) 05/29/22 01:13 MCHC 31.7 g/dL (30.0-36.0) 05/29/22 01:13 RDW 13.2 % (12.1-15.1) 05/29/22 01:13 Plt Count 356 10^3/cmm (130-400) 05/29/22 01:13 MPV 9.9 fL (7.4-10.4) 05/29/22 01:13 Neut % (Auto) 59.9 % 05/29/22 01:13 Lymph % (Auto) 25.2 % 05/29/22 01:13 [place] % (Auto) 9.5 % 05/29/22 01:13 Eos % (Auto) 4.6 % 05/29/22 01:13 Baso % (Auto) 0.6 % 05/29/22 01:13 Neut # (Auto) 3.93 10^3/uL (1.8-7.7) 05/29/22 01:13 Lymph # (Auto) 1.7 10^3/uL (0.8-4.8) 05/29/22 01:13 [place] # (Auto) 0.6 10^3/uL (0.2-0.9) 05/29/22 01:13 Eos # (Auto) 0.3 10^3/uL (0.0-0.8) 05/29/22 01:13 Baso # (Auto) 0.0 10^3/uL (0.0-0.1) 05/29/22 01:13 Nucleated RBC % (auto) 0 % 05/29/22 01:13 Nucleated RBCs # 0.0 /100WBC 05/29/22 01:13 Sodium 133 mmol/L (136-145) L 05/29/22 01:13 Potassium 3.6 mmol/L (3.5-5.1) 05/29/22 01:13 Chloride 102 mmol/L (98-107) 05/29/22 01:13 Carbon Dioxide 20 mmol/L (22-29) L 05/29/22 01:13 Anion Gap 14.6 (5-19) 05/29/22 01:13 BUN 11 mg/dL (6-20) 05/29/22 01:13 Creatinine 1.0 mg/dL (0.5-0.9) H 05/29/22 01:13 GFR Calculation 64.7 mL/min (90-130) L 05/29/22 01:13 Glucose 117 mg/dL (65-115) H 05/29/22 01:13 Calculated Osmolality 276 mOsm/kg (285-295) L 05/29/22 01:13 Calcium 9.6 mg/dL (8.5-10.5) 05/29/22 01:13 Total Bilirubin 0.2 mg/dL (0.15-1.2) 05/29/22 01:13 AST 20 U/L (0-32) 05/29/22 01:13 ALT 26 U/L (0-33) 05/29/22 01:13 Alkaline Phosphatase 53 U/L (35-105) 05/29/22 01:13 C-Reactive Protein 3.0 mg/L (0.0-4.9) 05/29/22 01:13 Total Protein 7.6 g/dL (6.6-8.7) 05/29/22 01:13 Albumin 4.4 g/dL (3.5-5.2) 05/29/22 01:13 Globulin 3.2 g/dL (1.3-4.6) 05/29/22 01:13 Lipase 55 U/L (13-60) 05/29/22 01:13 HCG, Qual Negative (Negative) 05/29/22 01:13 Urine Color Yellow (Yellow) 05/29/22 01:34 Urine Appearance Clear (CLEAR) 05/29/22 01:34 Urine pH 5 (5-7) 05/29/22 01:34 Ur Specific [place] 1.020 (1.005-1.030) 05/29/22 01:34 Urine Protein Neg (Negative) 05/29/22 01:34 Urine Glucose (UA) Norm (Normal) 05/29/22 01:34 Urine Ketones Negative (Negative) 05/29/22 01:34 Urine Blood Neg (Negative) 05/29/22 01:34 Urine Nitrate Negative (Negative) 05/29/22 01:34 Urine Bilirubin Neg (Negative) 05/29/22 01:34 Urine Urobilinogen Neg mg/dL (Negative) 05/29/22 01:34 Ur Leukocyte Esterase Negative (Negative) 05/29/22 01:34 Discharge Plan Discharge Patient Disposition: Home Clinical Impression: Gastritis Condition: Stable Prescriptions: New sucralfate [Carafate] 1 gram tablet 1 g PO TID 28 Days Qty: 84 0RF No Action naproxen 500 mg tablet 500 mg PO BID 10 Days Qty: 20 0RF tizanidine 2 mg capsule 2 mg PO BID PRN (Reason: muscle spasticity) Qty: 7 0RF Protonix 40 mg tablet,delayed release (DR/EC) 40 mg PO DAILY Qty: 60 0RF metoclopramide HCl 10 mg tablet 10 mg PO DAILY Qty: 30 0RF Rx Instructions: take daily with last meal of day Discharge Orders: Discharge ED (Routine); Ordered 05/29/22 Ordered By: Vasile Salazar Discharge Diet: Advance as tolerated Patient Instructions: Pain Management Activity Restrictions/Additional Instructions: Return for fever greater than 100, skin or eyes turning yellow, vomiting liquids or medications, worsening pain despite treatment, any other concerning symptoms. Follow-up with your surgeon as directed. Coding Level of Care Code ED Delicate Fabrics Presser for Chg Fwd Exam Comprehensive
[2022-05-29] MEDS: ondansetron 2 mg/ML SDV 2 mL 4 MG IVP (01:50)
[2022-05-29] MEDS: morphine 4 mg/mL SDV 1 mL IVP (01:50)
[2022-05-29] MEDS: lidocaine 2% viscous 15 ML, aluminum-mag hydrox-simethicon 30 ML, sucralfate oral liq 1 GM PO (01:51)
[2022-05-29 01:53] LABS: Alanine Aminotransferase 26 U/L (0-33); Albumin Level 4.4 g/dL (3.5-5.2); Alkaline Phosphatase 53 U/L (35-105); Anion Gap 14.6 (5-19); Aspartate Amino Transferase 20 U/L (0-32); Blood Urea Nitrogen 11 mg/dL (6-20); Calcium 9.6 mg/dL (8.5-10.5); Carbon Dioxide 20 mmol/L (22-29); Chloride 102 mmol/L (98-107); Globulin 3.2 g/dL (1.3-4.6); Glomerular Filtration Rate 64.7 mL/min (90-130); Glucose 117 mg/dL (65-115); Lipase 55 U/L (13-60); Osmolality Calculated 276 mOsm/kg (285-295); Potassium 3.6 mmol/L (3.5-5.1); Sodium 133 mmol/L (136-145); Total Bilirubin 0.2 mg/dL (0.15-1.2); Total Protein 7.6 g/dL (6.6-8.7)
[2022-05-29 01:54] VITALS: PULSE 72; RESP 18; O2SAT 95
[2022-05-29 02:43] VITALS: BP 120/80; PULSE 85; O2SAT 96
== END 2022-05-29 02:51 | disposition home or self-care (01) ==
PROVIDERS: Emergency Provider Emergency Medicine
DX: K29.70 Gastritis, unspecified, without bleeding (principal); K80.20 Calculus of gallbladder without cholecystitis without obstruction
CPT/HCPCS: 76705; 80053; 81003; 83690; 84703; 85025; 86140; 96374; 96375; 99285; J2270; J2405

== ENCOUNTER 2022-06-02 08:11 | Day surgery (SDC) | payer BC, MEDICAID, SELFPAY ==
[2022-06-01 08:20] VITALS: BMI 43.4
[2022-06-02 08:39] LABS: OR HCG Qualitative Urine Negative (Negative)
--- NOTE | 2022-06-02 08:41 | P.ANESASSM_ITS ---
Pre-Anesthetic Assessment Height/Weight: Height 1.7 m Weight 125.645 kg Operation Date: 06/02/22 09:30 Proposed Procedures p 40413 EGD K29.7(Not Applicable) - Lencho Huffman DO Airway Mallampati: Class II History/ROS No significant complaints GI Gastroesophageal Reflux Disease Metabolic Hyperlipidemia ([id number]) [facility] [place] None reported Neuropsych None reported Anesthetic Plan ASA status: 2 Anesthesia: MAC Medications/Allergies Home Medications Medication Instructions Recorded Confirmed Last Taken Type metoclopramide HCl 10 mg tablet 10 mg PO DAILY #30 tabs 05/09/22 06/02/22 06/01/22 Rx Allergies Allergy/AdvReac Type Severity Reaction Status Date / Time No Known Allergies Allergy Verified 06/01/22 08:18 [facility] Anesthesia Medical History Complication of section wound X 2 Surgical History (Updated 05/31/22 @ 15:31 by Lencho Huffman DO) History of Family History Grandmother Bleeding disorder maternal Diabetes maternal Stroke paternal Mother Diabetes Heart disease Denies family history of Colon cancer Ovarian cancer Clotting disorder Hyperlipidemia Breast cancer Anesthesia complication Hypertension Uterine cancer Thyroid condition Social History Smoking and tobacco status: never smoked Alcohol intake: never Female Reproductive History Date of last menstrual period: 10/15/19 Data Anesthesia Cardiac Studies: No Data to Display
[2022-06-02 08:42] VITALS: BP 158/123; PULSE 78; RESP 18; TEMP 36.7; O2SAT 99
[2022-06-02] MEDS: sodium chloride 0.9% 1,000 ML 30 ML IV (08:46)
--- NOTE | 2022-06-02 09:02 | ANES.PREANE2 ---
Pre-Anesthetic Assessment Height/Weight: Height 1.7 m Weight 125.645 kg Temp Pulse Resp BP Pulse Ox O2 Del Method 98.1 F 78 18 158/123 99 06/02/22 08:42 06/02/22 08:42 06/02/22 08:42 06/02/22 08:42 06/02/22 08:42 06/02/22 08:42 Operation Date: 06/02/22 09:30 Proposed Procedures p [id number] EGD K29.7(Not Applicable) - Lencho Huffman DO Familial anesthetic complications: None Was Beta Alexis taken within 24 hours: N/A Was Clonidine taken within 24 hours: N/A Last intake: Intake Last Liquid Date 06/01/22 Last Liquid Time 21:00 Last Solid Date 06/01/22 Last Solid Time 21:00 Social No alcohol and No tobacco Exam alert, oriented x 3, clear to auscultation bilaterally and regular rate & rhythm Airway Mallampati: Class IV GI Gastroesophageal Reflux Disease Metabolic Morbid Obesity Anesthetic Plan ASA status: 2 Anesthesia: MAC Risk of > 500 ml blood loss (7ml/kg in children): No Medications/Allergies Home Medications Medication Instructions Recorded Confirmed Last Taken Type metoclopramide HCl 10 mg tablet 10 mg PO DAILY #30 tabs 05/09/22 06/02/22 06/01/22 Rx Allergies Allergy/AdvReac Type Severity Reaction Status Date / Time No Known Allergies Allergy Verified 06/01/22 08:18 Current Medications Generic Name Dose Route Start Last Admin Trade Name Freq PRN Reason Stop Dose Admin Sodium Chloride 1,000 mls @ 30 mls/hr 06/02/22 08:30 06/02/22 08:46 Sodium Chloride 0.9% IV 06/03/22 08:29 30 mls/hr .Q24H FABRIZIO Administration PFSH Anesthesia Medical History Complication of section wound X 2 Surgical History (Updated 05/31/22 @ 15:31 by Lencho Huffman DO) History of Family History Grandmother Bleeding disorder maternal Diabetes maternal Stroke paternal Mother Diabetes Heart disease Denies family history of Colon cancer Ovarian cancer Clotting disorder Hyperlipidemia Breast cancer Anesthesia complication Hypertension Uterine cancer Thyroid condition Social History Smoking and tobacco status: never smoked Alcohol intake: never Female Reproductive History Date of last menstrual period: 10/15/19 Data Anesthesia Cardiac Studies: No Data to Display
--- NOTE | 2022-06-02 09:43 | P.HPUD_ITS ---
Surgery/Procedure H&P Update DATE OF PROCEDURE: June 02, 2022 DATE H&P PERFORMED: 05/31/22 PLANNED PROCEDURE: Operation Date: 06/02/22 09:30 Proposed Procedures p [id number] EGD K29.7(Not Applicable) - Lencho Huffman DO
--- NOTE | 2022-06-02 09:43 | W.PM.OPSUD ---
Surgery/Procedure H&P Update DATE OF PROCEDURE: June 02, 2022 DATE H&P PERFORMED: 05/31/22 PLANNED PROCEDURE: Operation Date: 06/02/22 09:30 Proposed Procedures p [id number] EGD K29.7(Not Applicable) - Lencho Huffman DO
[2022-06-02 09:58] VITALS: BP 107/72; PULSE 99; RESP 16; TEMP 36.6; O2SAT 95
[2022-06-02 10:10] VITALS: BP 140/80; PULSE 70; RESP 16; O2SAT 98
--- NOTE | 2022-06-02 17:08 | ANE.PACU2 ---
Inpatient post-anesthesia follow up: Airway intact: Yes Vital signs: Temperature 97.9 F Pulse Rate 70 Respiratory Rate 16 Blood Pressure 140/80 Pulse Oximetry 98 Oxygen Delivery Me thod Room Air Oxygen Flow Rate Fraction of Inspir ed Oxygen Hydration adequate: Yes Nausea and vomiting: No Pain level: 1 Mental status: Baseline
== END 2022-06-02 10:30 | disposition home or self-care (01) ==
PROVIDERS: Visit Provider Surgery
PROC: 0DJ08ZZ Inspection of Upper Intestinal Tract, Via Natural or Artificial Opening Endoscopic (ICD-10-PCS; CPT 43235; principal; 2022-06-02 09:30)
DX: K29.70 Gastritis, unspecified, without bleeding (principal); K21.9 Gastro-esophageal reflux disease without esophagitis; E66.01 Morbid (severe) obesity due to excess calories; Z68.41 Body mass index [BMI] 40.0-44.9, adult
CPT/HCPCS: 43239; 76937; 84703; 88305; J7030

== ENCOUNTER 2022-06-30 07:24 | Day surgery (SDC) | payer BC, MEDICAID, SELFPAY ==
[2022-06-29 15:00] VITALS: BMI 43.0
[2022-06-30] VITALS (12 sets, daily range): BP systolic 94–124; BP diastolic 53–82; PULSE 62–86; RESP 16–24; TEMP 36.6–36.7; O2SAT 95–100
[2022-06-30 07:48] LABS: OR HCG Qualitative Urine Negative (Negative)
[2022-06-30] MEDS: sodium chloride 0.9% 1,000 ML 30 ML IV (08:00)
--- NOTE | 2022-06-30 08:20 | ANES.PREANE2 ---
Pre-Anesthetic Assessment Height/Weight: Height 1.7 m Weight 124.738 kg Temp Pulse Resp BP Pulse Ox O2 Del Method 98.1 F 81 16 124/82 97 06/30/22 07:49 06/30/22 07:49 06/30/22 07:49 06/30/22 07:49 06/30/22 07:49 06/30/22 07:49 Preop Diagnosis: Symptomatic cholelithiasis Operation Date: 06/30/22 09:00 Proposed Procedures p lap ismael [id number],K80.20(Not Applicable) - Lencho Huffman DO Familial anesthetic complications: None Was Beta Alexis taken within 24 hours: N/A Was Clonidine taken within 24 hours: N/A Last intake: Intake Last Liquid Date 06/29/22 Last Liquid Time 17:00 Last Solid Date 06/29/22 Last Solid Time 17:00 Social No alcohol and No tobacco Exam alert, oriented x 3, clear to auscultation bilaterally and regular rate & rhythm Airway Mallampati: Class III Dentition: full GI Gastroesophageal Reflux Disease Metabolic Morbid Obesity Anesthetic Plan ASA status: 2 Anesthesia: General Risk of > 500 ml blood loss (7ml/kg in children): No Medications/Allergies Home Medications Medication Instructions Recorded Confirmed Last Taken Type No Known Home Medications 06/15/22 06/29/22 Unknown History Allergies Allergy/AdvReac Type Severity Reaction Status Date / Time No Known Allergies Allergy Verified 06/15/22 16:37 [facility] Anesthesia Medical History Complication of section wound X 2 Surgical History History of Family History Grandmother Bleeding disorder maternal Diabetes maternal Stroke paternal Mother Diabetes Heart disease Denies family history of Colon cancer Ovarian cancer Clotting disorder Hyperlipidemia Breast cancer Anesthesia complication Hypertension Uterine cancer Thyroid condition Social History Smoking and tobacco status: never smoked Alcohol intake: never Data Anesthesia Cardiac Studies: No Data to Display
--- NOTE | 2022-06-30 08:53 | W.PM.OPSUD ---
Surgery/Procedure H&P Update DATE OF PROCEDURE: June 30, 2022 DATE H&P PERFORMED: 06/15/22 H&P UPDATE INFORMATION: I have reviewed H&P completed within last 30 days, I have examined patient prior to procedure and No changes to prior documentation PREOP DIAGNOSIS: Symptomatic cholelithiasis PLANNED PROCEDURE: Operation Date: 06/30/22 09:00 Proposed Procedures p lap ismael [id number],K80.20(Not Applicable) - Lencho Huffman DO
[2022-06-30] MEDS: ceFAZolin 2,000 MG in sodium chloride 0.9% (plus) 50 ML 100 MG IV (09:02)
[2022-06-30] MEDS: lidocaine-epi 2% 20 mL INJ 6 ML INJECTION (09:19)
[2022-06-30] MEDS: ceFAZolin 1,000 mg SDV 1000 MG IVP (09:25)
--- NOTE | 2022-06-30 09:52 | P.OP_ITS ---
Operative Report Date of procedure: June 30, 2022 Pre-op diagnosis: Preop Diagnosis Symptomatic cholelithiasis Post-op diagnosis: same Procedure done: Laparoscopic cholecystectomy Specimens removed/disposition: Gallbladder Surgeon: Dr. Lencoh Huffman DO Anesthesia: General Estimated blood loss (mL): 5 Complications: None apparent Brief History: This very pleasant 31-year-old female who came to my office with symptomatic cholelithiasis. Laparoscopic cholecystectomy was indicated. The risk and benefits were explained and documented. Procedure: Patient was wheeled into the operative room and placed on the OR table in a supine position. Abdomen was inspected prepped and draped in usual sterile fashion. Time-out was performed and all present were in agreement. A 15 blade scalp was used to make a stab incision in the left upper quadrant and intra- abdominal insufflation was achieved using a Veress needle. After localizing the tissue incisions were made and a 5 millimeter trocar was placed into the umbilicus as well as 2 in the right upper quadrant. A 12 millimeter trocar was placed in the epigastrium. Gallbladder was grasped and elevated. The triangle of Calot was carefully dissected using blunt dissection and electrocautery until the triangle of Calot clearly identified. The cystic duct was clipped proximally and double clipped distally. The duct was then ligated proximally. The cystic artery was doubly clipped and ligated. The gallbladder was then removed from the liver bed using electrocautery. The gallbladder was removed from the abdomen using an Endo-Catch bag through the epigastric incision. The liver bed was inspected and no bleeding was seen. The abdomen was irrigated and suctioned. All ports removed. Skin was washed and dried. Incisions were gwen sed with 3-0 and 4-O Vicryl in a subcuticular interrupted fashion. Skin glue was applied. Patient tolerated the procedure well.
[2022-06-30] MEDS: ondansetron 2 mg/ML SDV 2 mL 4 MG IVP (10:30)
[2022-06-30] MEDS: HYDROcodone-acetaminophen 7.5-325 mg Tablet 1 TAB PO (11:02)
[2022-06-30] MEDS: ondansetron 2 mg/ML SDV 2 mL 4 MG (11:50)
--- NOTE | 2022-06-30 14:10 | ANE.PACU2 ---
Inpatient post-anesthesia follow up: Airway intact: Yes Vital signs: Temperature 98.1 F Pulse Rate 78 Respiratory Rate 16 Blood Pressure 106/53 Pulse Oximetry 97 Oxygen Delivery Me thod Room Air Oxygen Flow Rate 8 Fraction of Inspir ed Oxygen Hydration adequate: Yes Nausea and vomiting: No Pain level: 1 Mental status: Baseline
== END 2022-06-30 12:10 | disposition home or self-care (01) ==
PROVIDERS: Anesthesiology; Visit Provider Surgery
PROC: 0FT44ZZ Resection of Gallbladder, Percutaneous Endoscopic Approach (ICD-10-PCS; CPT 47562; principal; 2022-06-30 09:00)
DX: K80.10 Calculus of gallbladder with chronic cholecystitis without obstruction (principal); K21.9 Gastro-esophageal reflux disease without esophagitis; E66.01 Morbid (severe) obesity due to excess calories; Z68.41 Body mass index [BMI] 40.0-44.9, adult
CPT/HCPCS: 47562; 81025; 84703; 88304; J0131; J0330; J0690; J1100; J1200; J1885; J2250; J2405; J2704; J2710; J3010; J3490; J7030

== ENCOUNTER 2022-10-08 14:35 | Emergency (ER) | payer BC, MEDICAID, SELFPAY ==
[2022-10-08 14:39] VITALS: PULSE 106; RESP 16; TEMP 36.8; O2SAT 98; BMI 43.8
[2022-10-08 15:13] VITALS: BP 135/92; PULSE 91; O2SAT 96
--- NOTE | 2022-10-08 15:49 | ED_ITS ---
HPI - Headache General: Chief Complaint: Headache Stated Complaint: Headache for 10 days Time Seen by Provider: 10/08/22 15:49 History of Present Illness: Ms. Watson is a 31-year-old lady with history of headache presenting to the emergency department for headache. Pain is fairly typical of her typical migraines which are rare with exception of prolonged duration. Typically hea daches last approximately 1 day however this has been ongoing for about 10 days. She notes pain that migrates occasionally from the top of her head down to her face. Photosensitivity and sound sensitivity. She notes nausea and vomiting and generalized unwell feeling. Denies focal neurologic deficits. No neck pain or fevers. Has tried [id number] medications without significant improveme nt. No other specific changes in health, exacerbating, or alleviating factors identified. Onset (ago): day(s) Onset description: gradually Location: frontal Quality & Timing: aching and throbbing Exacerbating factors: exertion, light and noise Associated symptoms: Reports malaise, nausea and vomiting Review of Systems General: Reports: 10 or more systems reviewed and unremarkable except in HPI and below Const: Reports: malaise GI: Reports: nausea and vomiting PFS ED PFSH: Medical History Complication of section wound X 2 Surgical History History of History of laparoscopic cholecystectomy Family History Grandmother Bleeding disorder maternal Diabetes maternal Stroke paternal Mother Diabetes Heart disease Denies family history of Colon cancer Ovarian cancer Clotting disorder Hyperlipidemia Breast cancer Anesthesia complication Hypertension Uterine cancer Thyroid condition Social History Smoking and tobacco status: never smoked Alcohol intake: never Substance/Drug Use: never Physical Exam Const: COMMON NORMALS: patient oriented x3 and alert GENERAL APPEARANCE: cooperative and well developed HENMT: COMMON NORMALS: normocephalic and atraumatic HEAD & SCALP: normocephalic and atraumatic THROAT: posterior oropharynx normal Eye: COMMON NORMALS: conjunctivae normal CONJUNCTIVA: Yes conjunctivae normal SCLERA: sclerae normal Neck/C-Spine: COMMON NORMALS: supple and no meningeal signs GENERAL: Yes trachea midline Resp: COMMON NORMALS: normal respiratory effort EFFORT & INSPECTION: Yes able to speak in complete sentences Cardio: COMMON NORMALS: regular rate and regular rhythm RATE: regular rate RHYTHM: regular rhythm GI: COMMON NORMALS: Soft to palpation PALPATION: Yes Soft to palpation and No Tenderness to palpation present (GI) PERCUSSION: normal to percussion Extremity: GENERAL: Yes normal exam except as noted and No edema Neuro: COMMON NORMALS: patient oriented x3, CN's II-XII intact bilaterally, moves all extremities, no focal motor deficits and no sensory deficits noted SENSORIUM/ORIENTATION: Yes alert and No Orientation impaired MENINGEAL SIGNS: Yes no meningeal signs Psych: COMMON NORMALS: mental status grossly normal and Normal thought process present THOUGHT PROCESS: Normal thought process present Course Vital Signs: Vital signs: Vital Signs Temperature 98.2 F 10/08/22 14:39 Pulse Rate 99 10/08/22 18:17 Respiratory Rate 16 10/08/22 14:39 Blood Pressure 119/72 10/08/22 18:17 Pulse Oximetry 100 10/08/22 18:17 Oxygen Delivery Me thod Room Air 10/08/22 15:13 MDM - Headache Medical Decision Making 31-year-old lady with history of headaches presenting for prolonged headache worse than baseline. Exam as above. Patient is nontoxic. Given abnormal duration though otherwise similar characteristics I believe that laboratory studies are an appropriate initial evaluation step. Minimal leukocytosis, normal hemoglobin and platelet count. Metabolic panel without significant abnormality. Likely no UTI given squamous epithelial contamination. COVID-negative and hCG negative. Patient treated with headache cocktail with significant improvement. Given improvement patient is comfortable foregoing head CT imaging which I believe is also appropriate to forego. The results of ED evaluation were discussed with the patient including prescriptions and/or symptomatic cares (if applicable) including appropriate and responsible use, followup plan, and return precautions. The patient verbalized understanding and felt safe for discharge. Medical Records I reviewed the patient's medical records. Lab Data I reviewed the patient's lab results. 10/08/22 16:25 10/08/22 16:25 Laboratory Results WBC 11.3 10^3/uL (4.0-10.0) H 10/08/22 16:25 RBC 5.23 10^6/uL (4.1-5.3) 10/08/22 16:25 Hgb 15.1 g/dL (11.5-15.3) 10/08/22 16:25 Hct 47.1 % (37.0-47.0) H 10/08/22 16:25 MCV 90.1 fl (81-99) 10/08/22 16:25 MCH 28.9 pg (28.0-34.0) 10/08/22 16:25 MCHC 32.1 g/dL (30.0-36.0) 10/08/22 16:25 RDW 13.7 % (12.1-15.1) 10/08/22 16:25 Plt Count 379 10^3/cmm (130-400) 10/08/22 16:25 MPV 9.6 fL (7.4-10.4) 10/08/22 16:25 Neut % (Auto) 69.6 % 10/08/22 16:25 Lymph % (Auto) 20.8 % 10/08/22 16:25 [place] % (Auto) 6.4 % 10/08/22 16:25 Eos % (Auto) 2.5 % 10/08/22 16:25 Baso % (Auto) 0.4 % 10/08/22 16:25 Neut # (Auto) 7.84 10^3/uL (1.8-7.7) H 10/08/22 16:25 Lymph # (Auto) 2.3 10^3/uL (0.8-4.8) 10/08/22 16:25 [place] # (Auto) 0.7 10^3/uL (0.2-0.9) 10/08/22 16:25 Eos # (Auto) 0.3 10^3/uL (0.0-0.8) 10/08/22 16:25 Baso # (Auto) 0.0 10^3/uL (0.0-0.1) 10/08/22 16:25 Nucleated RBC % (auto) 0 % 10/08/22 16:25 Nucleated RBCs # 0.0 /100WBC 10/08/22 16:25 Sodium 139 mmol/L (136-145) 10/08/22 16:25 Potassium 4.2 mmol/L (3.5-5.1) 10/08/22 16:25 Chloride 102 mmol/L (98-107) 10/08/22 16:25 Carbon Dioxide 25 mmol/L (22-29) 10/08/22 16:25 Anion Gap 16.2 (5-19) 10/08/22 16:25 BUN 8 mg/dL (6-20) 10/08/22 16:25 Creatinine 0.9 mg/dL (0.5-0.9) 10/08/22 16:25 GFR Calculation 73.0 mL/min (90-130) L 10/08/22 16:25 Glucose 86 mg/dL (65-115) 10/08/22 16:25 Calculated Osmolality 286 mOsm/kg (285-295) 10/08/22 16:25 Calcium 9.9 mg/dL (8.5-10.5) 10/08/22 16:25 HCG, Qual Negative (Negative) 10/08/22 16:25 Urine Color Yellow (Yellow) 10/08/22 17:20 Urine Appearance Sl hazy (CLEAR) A 10/08/22 17:20 Urine pH 7 (5-7) 10/08/22 17:20 Ur Specific [place] 1.010 (1.005-1.030) 10/08/22 17:20 Urine Protein Neg (Negative) 10/08/22 17:20 Urine Glucose (UA) Norm (Normal) 10/08/22 17:20 Urine Ketones 1+ (Negative) H 10/08/22 17:20 Urine Blood Neg (Negative) 10/08/22 17:20 Urine Nitrate Negative (Negative) 10/08/22 17:20 Urine Bilirubin Neg (Negative) 10/08/22 17:20 Urine Urobilinogen Norm mg/dL (Negative) 10/08/22 17:20 Ur Leukocyte Esterase Trace (Negative) H 10/08/22 17:20 Urine RBC 0-4 /hpf (0-2) H 10/08/22 17:20 Urine WBC 5-10 /hpf (0-5) H 10/08/22 17:20 Ur Squamous Epith Cells 15-25 /hpf (0-5) H 10/08/22 17:20 Amorphous Sediment Not Reportable 10/08/22 17:20 Urine Bacteria 2+ /hpf (NONE) H 10/08/22 17:20 SARS-CoV-2 Ag (Rapid) negative (Negative) 10/08/22 17:25 Discharge Plan Discharge Patient Disposition: Home Clinical Impression: Headache Condition: Stable Prescriptions: New Reglan 10 mg tablet 10 mg PO Q6H PRN (Reason: headache) Qty: 20 0RF No Action hydrocodone-acetaminophen 7.5-325 mg tablet 1 tab PO Q6H PRN (Reason: pain) Qty: 20 0RF DOK 100 mg capsule 100 mg PO BID PRN (Reason: constipation) Qty: 20 0RF Discharge Orders: Discharge ED (Routine); Ordered 10/08/22 Ordered By: Cody Fofana Referrals: Fanta Serrano MD [Primary Care Provider] - Discharge Diet: Usual diet Discharge Activity: Resume usual activity Patient Instructions: Acute Headache (ED) Activity Restrictions/Additional Instructions: Thank you for visiting the emergency department. You were seen and evaluated for headache. We are pleased that you had improvement with treatment in the e mergency department. The most likely cause of your headache is related to underlying headache disorder. Please follow-up with your primary care provider. Return to the emergency department for anything as discussed, or anything else that you are concerned about and feel needs emergency department evaluation. Coding Level of Care Code ED Scientific Informatics Analyst for Yohana Brower
[2022-10-08] MEDS: diphenhydrAMINE 50 mg/mL SDV 1mL 25 MG IVP (16:18)
[2022-10-08] MEDS: metoclopramide 5 mg/mL SDV 2 mL 10 MG IVP (16:19)
[2022-10-08] MEDS: ketorolac 30 mg/mL INJ 15 MG IVP (16:19)
[2022-10-08] MEDS: sodium chloride 0.9% 1,000 ML 999 ML IV (16:19)
[2022-10-08 16:29] LABS: Basophils % 0.4 %; Eosinophils # 0.3 10^3/uL (0.0-0.8); Eosinophils % 2.5 %; Hematocrit 47.1 % (37.0-47.0); Hemoglobin 15.1 g/dL (11.5-15.3); Lymphocytes # 2.3 10^3/uL (0.8-4.8); Lymphocytes % 20.8 %; Mean Corpuscular HGB Conc 32.1 g/dL (30.0-36.0); Mean Corpuscular Hemoglobin 28.9 pg (28.0-34.0); Mean Corpuscular Volume 90.1 fl (81-99); Mean Platelet Volume 9.6 fL (7.4-10.4); Monocytes # 0.7 10^3/uL (0.2-0.9); Monocytes % 6.4 %; Neutrophils # 7.84 10^3/uL (1.8-7.7); Neutrophils % 69.6 %; Nucleated Red Blood Cells % 0 %; Platelet Count 379 10^3/cmm (130-400); Red Blood Count 5.23 10^6/uL (4.1-5.3); Red Cell Distribution Width 13.7 % (12.1-15.1); White Blood Count 11.3 10^3/uL (4.0-10.0)
[2022-10-08 16:51] LABS: Anion Gap 16.2 (5-19); Blood Urea Nitrogen 8 mg/dL (6-20); Calcium 9.9 mg/dL (8.5-10.5); Carbon Dioxide 25 mmol/L (22-29); Chloride 102 mmol/L (98-107); Glucose 86 mg/dL (65-115); Osmolality Calculated 286 mOsm/kg (285-295); Potassium 4.2 mmol/L (3.5-5.1); Sodium 139 mmol/L (136-145)
[2022-10-08 16:57] LABS: HCG, Serum Qual Negative (Negative)
[2022-10-08 17:45] LABS: Urine Appearance SL Hazy (CLEAR); Urine Color Yellow (Yellow)
[2022-10-08 17:46] LABS: Add Urine Culture? No; Add Urine Microscopic? YES; Bacteria Urine 2+ /hpf; Bilirubin Urine Neg (Negative); Blood Urine Neg (Negative); Glucose Urine UA Norm (Normal); Ketones Urine 1+ (Negative); Leukocyte Esterase Urine Trace (Negative); Nitrate Urine Negative (Negative); Protein Urine Neg (Negative); RBC Urine 0-4 /hpf (0-2); Squamous Epithelial Cell Urine 15-25 /hpf (0-5); Urobilinogen Urine Norm (Negative); pH Urine 7 (5-7)
[2022-10-08 17:55] LABS: SARS Covid-2 Antigen negative (Negative)
[2022-10-08 18:17] VITALS: BP 119/72; PULSE 99; O2SAT 100
== END 2022-10-08 18:18 | disposition home or self-care (01) ==
PROVIDERS: Emergency Provider Emergency Medicine; PCP Family Medicine
DX: R51.9 Headache, unspecified (principal)
CPT/HCPCS: 80048; 81001; 84703; 85025; 87426; 96374; 96375; 99284; J1200; J1885; J2765; J3475; J7030

== ENCOUNTER 2022-12-16 11:23 | Emergency (ER) | payer BC, MEDICAID, SELFPAY ==
[2022-12-16 11:28] VITALS: BP 117/81; PULSE 108; RESP 16; TEMP 36.6; O2SAT 97
--- NOTE | 2022-12-16 13:05 | CT_ITS ---
WS: [id number] CT HEAD TECHNIQUE: Noncontrast CT of the head obtained from the skullbase to the vertex. CLINICAL INFORMATION: new onset migraines x 2 months, worsening COMPARISON: None. DLP: 1042.[address] scans at [facility] use at least one of these dose optimization techniques: automated e xposure control; mA and/or kV adjustment per patient size (includes targeted exams where dose is matc hed to clinical indication); or iterative reconstruction. FINDINGS: No evidence of intracranial hemorrhage or mass effect. Ventricular system and basal cisterns are oro nt. No extra-axial fluid collections. No evidence of mass or mass effect. Normal weinberg-white different iation. Paranasal sinuses and mastoid air cells are well aerated. .Normal visualized soft tissues. IMPRESSION: 1. No evidence of intracranial hemorrhage or mass effect. 2. Normal weinberg-white differentiation. 3. No acute intracranial findings.
--- NOTE | 2022-12-16 13:05 | ED.C_ITS ---
HPI - Psych General: Chief Complaint: Psychiatric Symptoms Stated Complaint: Panic attack, Head pain, balance off Time Seen by Provider: 12/16/22 12:41 Source: patient Mode of arrival: ambulatory Limitations: no limitations History of Present Illness: 32-year-old female presents to the ER today for 2 months of new onset migraines. Patient reports she is seeing her PCP with this. Patient reports she was started on Topamax about 1 month ago and has tapered up and is now taking 100 mg twice daily of the Topamax. Patient reports over the last month the migraines have continued. Patient reports today she woke up and just feels not right. She reports she feels like she has difficulty balancing and coordinating movements. She reports a migraine that is not going away today. Patient reports she went to [facility] to be seen and they told her she had an outstanding bill so she would not be able to be seen. Patient reports at that time she became very anxious and had a full-blown panic attack. Patient does not have a history of panic attacks. Reports currently the anxiety is still present but better than it was when she first arrived in the ER. Patient denies any thoughts of suicide or self-harm. Patient has not seen a neurologist. Patient reports with her migraine she is experienced nausea and light sensitivity but denies any aura. Patient has not had any imaging of her head. Review of Systems General: Reports: 10 or more systems reviewed and unremarkable except in HPI and below PFSH ED PFSH: Medical History Complication of section wound X 2 Surgical History History of History of laparoscopic cholecystectomy Family History Grandmother Bleeding disorder maternal Diabetes maternal Stroke paternal Mother Diabetes Heart disease Denies family history of Colon cancer Ovarian cancer Clotting disorder Hyperlipidemia Breast cancer Anesthesia complication Hypertension Uterine cancer Thyroid condition Social History Smoking and tobacco status: never smoked Alcohol intake: never Substance/Drug Use: never Physical Exam Const: COMMON NORMALS: no acute distress (anxious), average body habitus, patient oriented x3, no limitations, healthy appearing, alert and well nourished HENMT: COMMON NORMALS: normocephalic, atraumatic, external ears normal, Normal external nose present and moist oral mucous membranes HEAD & SCALP: normocephalic and atraumatic NOSE: Normal external nose present EXTERNAL EAR: Yes external ears normal Eye: COMMON NORMALS: Equal, round and reactive pupils present and conjunctivae normal CONJUNCTIVA: Yes conjunctivae normal PUPIL: Yes Equal, round and reactive pupils present Neck/C-Spine: COMMON NORMALS: full ROM Resp: COMMON NORMALS: normal respiratory effort EFFORT & INSPECTION: Yes able to speak in complete sentences Cardio: COMMON NORMALS: regular rhythm RATE: tachycardic (mildly, likely due to anxiety/panic attack) RHYTHM: regular rhythm GI: COMMON NORMALS: Normal to inspection, nondistended, normoactive bowel sounds present, Soft to palpation and non-tender PALPATION: Yes Soft to palpation Extremity: COMMON NORMALS: full ROM and no pedal edema Neuro: COMMON NORMALS: patient oriented x3 SENSORIUM/ORIENTATION: Yes alert Psych: COMMON NORMALS: mental status grossly normal, Normal thought process present and cooperative THOUGHT PROCESS: Normal thought process present Skin: COMMON NORMALS: no rashes or lesions noted and no wounds GENERAL SKIN EXAM: no rashes or lesions noted Course ED course: Patient presents to the ER today for worsening migraines x2 months. Patient went to her PCP today after waking up this morning and feeling off. Patient reports her balance and coordination feel off today. Patient was started on Topamax recently and is tapered up to 100 mg twice a day. When patient went to her PCP they denied her a visit due to her owning a bill. Patient reports she became very anxious and had a full-blown panic attack. Patient then presented to the ER with concerns for the migraines and also the panic. Currently in the ER patient is emotional and anxious. She still has a headache. She did walk from triage to vertical flow without any balance issues. Exam is mostly unremarkable other than emotional/anxious. To reassure patient and given the worsening/new onset migraines, we will go ahead and CT patient's head. We will also give hydroxyzine for anxiety at this time. Patient had recent lab work done by PCP. Vital Signs: Vital signs: Vital Signs Temperature 97.9 F 12/16/22 11:28 Pulse Rate 108 H 12/16/22 11:28 Respiratory Rate 16 12/16/22 11:28 Blood Pressure 117/81 12/16/22 11:28 Pulse Oximetry 97 12/16/22 11:28 Oxygen Delivery Me thod Room Air 12/16/22 11:28 MDM - Psych Medical Decision Making Patient's mood seems significantly improved after the hydroxyzine. She does admit to feeling less panicky. Head CT was performed and is normal. Recommend patient follow-up with her PCP to discuss migraines which are worsening. I think that some of patient's symptoms are associated with Topamax use. Patient denies any thoughts of suicide or self-harm. She consents to safety at this time. Follow-up with PCP in 3 to 5 days. Return to the ER with any new or wor sening symptoms. We will send patient home with hydroxyzine to use as needed. Patient verbalized understanding and was in agreement with the treatment plan. Critical Care Time Critical Care Time: Critical Care Time: No Discharge Plan Discharge Patient Disposition: Home Clinical Impression: Panic attack Migraine aura, persistent Qualifiers: Status migrainosus presence: without status migrainosus Intractability: not intractable Qualified Code(s): G43.509 - Persistent migraine aura without cerebral infarction, not intractable, without status migrainosus Condition: Stable Prescriptions: New hydroxyzine HCl 25 mg tablet 25 mg PO TID PRN (Reason: anxiety) Qty: 30 0RF No Action hydrocodone-acetaminophen 7.5-325 mg tablet 1 tab PO Q6H PRN (Reason: pain) Qty: 20 0RF DOK 100 mg capsule 100 mg PO BID PRN (Reason: constipation) Qty: 20 0RF Reglan 10 mg tablet 10 mg PO Q6H PRN (Reason: headache) Qty: 20 0RF Discharge Orders: Discharge ED (Routine); Ordered 12/16/22 Ordered By: Janna Adkins Referrals: Fanta Serrano MD [Primary Care Provider] - Discharge Diet: Usual diet Discharge Activity: Resume usual activity Patient Instructions: Opioid Safety, Pain Management Activity Restrictions/Additional Instructions: Take hydroxyzine as prescribed and as needed for anxiety/panic attacks. Follow- up with PCP in 3 to 5 days to discuss worsening migraines. Recommend rest and hydration. Return to the ER with new or worsening symptoms. Coding Level of Care Code ED Product Support Sales Representative for Yohana Brower
[2022-12-16] MEDS: hyDROXYzine 25 mg Capsule 50 MG PO (13:15)
== END 2022-12-16 14:28 | disposition home or self-care (01) ==
PROVIDERS: Emergency Provider Physician Assistant; PCP Family Medicine
DX: F41.0 Panic disorder [episodic paroxysmal anxiety] (principal)
CPT/HCPCS: 70450; 99284

== ENCOUNTER 2023-07-24 19:50 | Emergency (ER) | payer BC, MEDICAID, SELFPAY ==
[2023-07-24] VITALS (8 sets, daily range): BP systolic 115–181; BP diastolic 87–143; PULSE 85–110; RESP 15–20; TEMP 37.1; O2SAT 95–98
--- NOTE | 2023-07-24 20:04 | XRR_ITS ---
PROCEDURE INFORMATION: Exam: XR Chest Exam date and time: 07/24/2023 8:08 PM Age: 32 years old Clinical indication: Other: Chest pain TECHNIQUE: Imaging protocol: Radiologic exam of the chest. Views: 1 view. COMPARISON: CR XR chest 1V portable [id number] 02/07/2022 2:43 AM FINDINGS: Lungs: Unremarkable. No consolidation or mass. Pleural spaces: Unremarkable. No pleural effusion. No pneumothorax. Heart/Mediastinum: Unremarkable. No cardiomegaly. Bones/joints: Unremarkable. XR/XR chest 1V portable [id number] IMPRESSION: No acute findings.
--- NOTE | 2023-07-24 20:04 | ECG_ITS ---
[facility] Test Date: 2023-07-24 Pat Name: Hillary Watson Department: Room: Gender: Female Technical Administrative Assistant: : 1990 Requested By: Jake uBnch Order Number: [id number] Holli MD: Jonathan Bartlett M.D. Measurements Intervals [place] Rate: 101 P: 50 SD: 168 QRS: 82 QRSD: 97 T: -47 QT: 307 QTc: 399 Interpretive Statements SINUS TACHYCARDIA MODERATE T-WAVE ABNORMALITY, CONSIDER LATERAL ISCHEMIA [-0.1+ mV T-WAVE IN I/aVL/V5/V6] MODERATE T-WAVE ABNORMALITY, CONSIDER INFERIOR ISCHEMIA [-0.1+ mV T-WAVE IN II/aVF] Compared to ECG 02/07/2022 02:19:25 Possible ischemia now present Sinus rhythm no longer present T-wave abnormality still present Electronically Signed On 07-25-2023 11:45:32 CDT by Jonathan Bartlett M.D. [id number]
--- NOTE | 2023-07-24 20:12 | ED_ITS ---
HPI - Chest Pain 2 General: Chief Complaint: Chest Pain Stated Complaint: cp Time Seen by Provider: 07/24/23 20:01 History of Present Illness: Patient presents to the ER complaining of intermittent chest pain since last night. There is nothing makes his pain better or worse. Patient says when his pain comes on it radiates from the front to the back. Patient denies being short of breath diaphoretic nauseated or vomiting during his episodes. Patient is never had these episodes before. Review of Systems 2 General: Reports: 10 or more systems reviewed and unremarkable except in HPI and below PFSH ED 2 PFSH: Medical History Complication of section wound X 2 Surgical History History of laparoscopic cholecystectomy History of Family History Grandmother Bleeding disorder maternal Diabetes maternal Stroke paternal Mother Diabetes Heart disease Denies family history of Colon cancer Ovarian cancer Clotting disorder Hyperlipidemia Breast cancer Anesthesia complication Hypertension Uterine cancer Thyroid disease Social History Smoking and tobacco/nicotine status: never used tobacco/nicotine Alcohol intake: never Substance/Drug Use: never Physical Exam 2 Const: COMMON NORMALS: no acute distress, average body habitus, patient oriented x3, no limitations, healthy appearing, alert and well nourished HENMT: COMMON NORMALS: normocephalic, atraumatic, hearing grossly normal bilaterally, external ears normal, EAC's normal, Normal external nose present, moist oral mucous membranes and oropharynx normal HEAD & SCALP: normocephalic and atraumatic NOSE: Normal external nose present EXTERNAL EAR: Yes external ears normal EXTERNAL AUDITORY CANAL: EAC's normal Neck/C-Spine: COMMON NORMALS: no JVD Chest: COMMONS NORMALS: normal inspection of the chest and normal palpation of entire chest wall Resp: COMMON NORMALS: normal respiratory effort, No retractions, No use of accessory muscles and clear to auscultation bilaterally AUSCULTATION: clear to auscultation bilaterally Cardio: COMMON NORMALS: no JVD, regular rate, regular rhythm, S1 normal heart sound present, S2 normal heart sound present, No gallops present (Cardio), No clicks present (Cardio), No murmurs present (Cardio) and No rub (Cardio) R ATE: regular rate RHYTHM: regular rhythm HEART SOUNDS: S1 normal heart sound present and S2 normal heart sound present GI: COMMON NORMALS: Normal to inspection, nondistended, normoactive bowel sounds present, Soft to palpation, non-tender, No hepatosplenomegaly present and no masses PALPATION: Yes Soft to palpation and Yes No hepatosplenomegaly present Neuro: COMMON NORMALS: patient oriented x3 SENSORIUM/ORIENTATION: Yes alert Course 2 Vital Signs: Vital signs: Vital Signs Temperature 98.7 F 07/24/23 19:55 Pulse Rate 85 07/24/23 22:33 Respiratory Rate 16 07/24/23 22:33 Blood Pressure 140/94 07/24/23 22:33 Pulse Oximetry 95 07/24/23 22:33 Oxygen Delivery Me thod Room Air 07/24/23 20:19 MDM - Chest Pain Medical Decision Making Patient was worked up in a standard chest pain fashion with serial EKGs and serial cardiac enzymes, chest x-ray, all which was essentially benign. None of these point towards a cardiac cause of her chest pain. Is felt that her chest pain is noncardiac in nature. Patient be discharged to follow-up with her PCP Differential Diagnosis Unlikely acute massive pulmonary embolism, acute respiratory failure, acute myocardial infarction, cardiac arrest or sudden cardiac Medical Records I reviewed the patient's medical records. Lab Data I reviewed the patient's lab results. 07/24/23 20:08 07/24/23 20:08 Radiology Impressions Chest X-Ray 07/24/23 20:04 IMPRESSION: No acute findings. Laboratory Results WBC 8.20 10^3/uL (3.29-11.43) 07/24/23 20:08 RBC 5.39 10^6/uL (3.85-5.65) 07/24/23 20:08 Hgb 15.90 g/dL (11.27-16.99) 07/24/23 20:08 Hct 48.1 % (36-47) H 07/24/23 20:08 MCV 89.2 fl (85-98) 07/24/23 20:08 MCH 29.5 pg (27-33) 07/24/23 20:08 MCHC 33.1 g/dL (30-55) 07/24/23 20:08 RDW 13.0 % (12.1-15.1) 07/24/23 20:08 Plt Count 335 10^3/cmm (157-399) 07/24/23 20:08 MPV 9.8 fL (7.4-10.4) 07/24/23 20:08 Neut % (Auto) 71.9 % 07/24/23 20:08 Lymph % (Auto) 18.0 % 07/24/23 20:08 [place] % (Auto) 5.5 % 07/24/23 20:08 Eos % (Auto) 3.7 % 07/24/23 20:08 Baso % (Auto) 0.7 % 07/24/23 20:08 Neut # (Auto) 5.89 10^3/uL (1.8-7.7) 07/24/23 20:08 Lymph # (Auto) 1.5 10^3/uL (0.8-4.8) 07/24/23 20:08 [place] # (Auto) 0.5 10^3/uL (0.2-0.9) 07/24/23 20:08 Eos # (Auto) 0.3 10^3/uL (0.0-0.8) 07/24/23 20:08 Baso # (Auto) 0.1 10^3/uL (0.0-0.1) 07/24/23 20:08 Nucleated RBC % (auto) 0 % 07/24/23 20:08 Nucleated RBCs # 0.0 /100WBC 07/24/23 20:08 Sodium 142 mmol/L (136-145) 07/24/23 20:08 Potassium 4.0 mmol/L (3.5-5.1) 07/24/23 20:08 Chloride 107 mmol/L (98-107) 07/24/23 20:08 Carbon Dioxide 22 mmol/L (22-29) 07/24/23 20:08 Anion Gap 17.0 (5-19) 07/24/23 20:08 BUN 12 mg/dL (6-20) 07/24/23 20:08 Creatinine 1.2 mg/dL (0.5-0.9) H 07/24/23 20:08 GFR Calculation 52.1 mL/min (90-130) L 07/24/23 20:08 Glucose 92 mg/dL (65-115) 07/24/23 20:08 Calculated Osmolality 293 mOsm/kg (285-295) 07/24/23 20:08 Calcium 10.2 mg/dL (8.5-10.5) 07/24/23 20:08 Total Bilirubin 0.4 mg/dL (0.15-1.2) 07/24/23 20:08 AST 23 U/L (0-32) 07/24/23 20:08 ALT 34 U/L (0-33) H 07/24/23 20:08 Alkaline Phosphatase 72 U/L (35-105) 07/24/23 20:08 Troponin T Baseline 7 ng/L (0-10) 07/24/23 20:08 Troponin T 120 Minute 6.00 ng/L (0-10) 07/24/23 21:58 Delta Troponin T -1.00 ABS# (0-10) L 07/24/23 21:58 Total Protein 8.2 g/dL (6.6-8.7) 07/24/23 20:08 Albumin 5.1 g/dL (3.5-5.2) 07/24/23 20:08 Globulin 3.1 g/dL (1.3-4.6) 07/24/23 20:08 All radiology interpretation(s) finalized by discharge Discharge Plan Discharge Patient Disposition: Home Clinical Impression: Atypical chest pain Condition: Stable Prescriptions: No Action bupropion HCl [Wellbutrin SR] 100 mg tablet sustained-release 12 hr 100 mg PO DAILY atorvastatin [Lipitor] 10 mg tablet 10 mg PO DAILY Discharge Orders: Discharge ED (Routine); Ordered 07/24/23 Ordered By: Jake Bunch Referrals: Fanta Serrano MD [Primary Care Provider] - 1 week Patient Instructions: Chest Pain - Noncardiac Activity Restrictions/Additional Instructions: Your evaluation in the ER did not reveal an acute cardiac cause of your chest pain. This is felt to be noncardiac in nature. Please follow-up with your family practice physician within the next 7 days for further evaluation and treatment as needed. If your chest pain worsens or changes please feel free to return to the ER. Coding Level of Care Code ED Drying And Winding Supervisor for Yohana Brower
[2023-07-24 20:15] LABS: Basophils # 0.1 10^3/uL (0.0-0.1); Basophils % 0.7 %; Eosinophils # 0.3 10^3/uL (0.0-0.8); Eosinophils % 3.7 %; Hematocrit 48.1 % (36-47); Lymphocytes # 1.5 10^3/uL (0.8-4.8); Mean Corpuscular HGB Conc 33.1 g/dL (30-55); Mean Corpuscular Hemoglobin 29.5 pg (27-33); Mean Corpuscular Volume 89.2 fl (85-98); Mean Platelet Volume 9.8 fL (7.4-10.4); Monocytes # 0.5 10^3/uL (0.2-0.9); Monocytes % 5.5 %; Neutrophils # 5.89 10^3/uL (1.8-7.7); Neutrophils % 71.9 %; Nucleated Red Blood Cells % 0 %; Platelet Count 335 10^3/cmm (157-399); Red Blood Count 5.39 10^6/uL (3.85-5.65)
[2023-07-24 20:34] LABS: Alanine Aminotransferase 34 U/L (0-33); Albumin Level 5.1 g/dL (3.5-5.2); Alkaline Phosphatase 72 U/L (35-105); Aspartate Amino Transferase 23 U/L (0-32); Blood Urea Nitrogen 12 mg/dL (6-20); Calcium 10.2 mg/dL (8.5-10.5); Carbon Dioxide 22 mmol/L (22-29); Chloride 107 mmol/L (98-107); Creatinine Clr Calc Pharmacy 91.3198; Globulin 3.1 g/dL (1.3-4.6); Glomerular Filtration Rate 52.1 mL/min (90-130); Glucose 92 mg/dL (65-115); Osmolality Calculated 293 mOsm/kg (285-295); Sodium 142 mmol/L (136-145); Total Bilirubin 0.4 mg/dL (0.15-1.2); Total Protein 8.2 g/dL (6.6-8.7)
[2023-07-24 20:35] LABS: Troponin(5th) Baseline 7 ng/L (0-10)
--- NOTE | 2023-07-24 22:04 | ECG_ITS ---
[facility] Test Date: 2023-07-24 Pat Name: Hillary Watson Department: Room: Gender: Female Electronic Warfare Officer: : 1990 Requested By: Jake Bunch Order Number: [id number] Holli MD: Jonathan Bartlett M.D. Measurements Intervals [place] Rate: 92 P: 32 [place]: 173 QRS: 77 QRSD: 91 T: -61 QT: 307 QTc: 380 Interpretive Statements SINUS RHYTHM MODERATE T-WAVE ABNORMALITY, CONSIDER LATERAL ISCHEMIA [-0.1+ mV T-WAVE IN I/aVL/V5/V6] MODERATE T-WAVE ABNORMALITY, CONSIDER INFERIOR ISCHEMIA [-0.1+ mV T-WAVE IN II/aVF] Compared to ECG 07/24/2023 19:51:35 Sinus tachycardia no longer present T-wave abnormality still present Possible ischemia still present Electronically Signed On 07-25-2023 11:46:17 CDT by Jonathan Bartlett M.D. [id number]
== END 2023-07-24 22:43 | disposition home or self-care (01) ==
PROVIDERS: Emergency Provider Emergency Medicine; PCP Family Medicine
DX: R07.89 Other chest pain (principal)
CPT/HCPCS: 36415; 71045; 80053; 84484; 85025; 93005; 99285

== ENCOUNTER 2023-08-15 09:02 | Day surgery (SDC) | payer BC, MEDICAID, SELFPAY ==
--- NOTE | 2023-08-07 10:15 | P.ANESASSM_ITS ---
Pre-Anesthetic Assessment Height/Weight: Height 1.7 m Operation Date: 08/15/23 13:10 Proposed Procedures p Laparoscopic Salpingectomy(Bilateral) - Laureano Mccabe MD Familial anesthetic complications: shivering (upon arrival home) for 45 minutes, resolved on its own Social No alcohol and No tobacco Exam alert, oriented x 3, clear to auscultation bilaterally and regular rate & rhythm Airway Mallampati: Class I Dentition: other (2 missing) Anesthetic Plan ASA status: 2 Anesthesia: General Risk of > 500 ml blood loss (7ml/kg in children): No Medications/Allergies Home Medications Medication Instructions Recorded Confirmed Last Taken Type atorvastatin 10 mg tablet (Lipitor) 10 mg PO DAILY 07/10/23 08/07/23 08/07/23 History bupropion HCl 100 mg tablet,12 hr 150 mg PO DAILY 08/07/23 08/07/23 08/07/23 History sustained-release (Wellbutrin SR) escitalopram oxalate 5 mg tablet 5 mg PO DAILY 08/07/23 08/07/23 08/07/23 History (Lexapro) Allergies Allergy/AdvReac Type Severity Reaction Status Date / Time No Known Allergies Allergy Verified 08/07/23 07:45 [facility] Anesthesia Medical History Complication of section wound X 2 Surgical History History of laparoscopic cholecystectomy History of Family History Grandmother Bleeding disorder maternal Diabetes maternal Stroke paternal Mother Diabetes Heart disease Denies family history of Colon cancer Ovarian cancer Clotting disorder Hyperlipidemia Breast cancer Anesthesia complication Hypertension Uterine cancer Thyroid disease Social History Smoking and tobacco/nicotine status: never used tobacco/nicotine Alcohol intake: never Substance/Drug Use: never Data Anesthesia 08/07/23 09:50 08/07/23 09:50 Cardiac Studies: 2 No Data to Display
[2023-08-07 10:29] LABS: Basophils % 0.5 %; Eosinophils # 0.2 10^3/uL (0.0-0.8); Eosinophils % 2.8 %; Hematocrit 46.1 % (36-47); Lymphocytes # 1.7 10^3/uL (0.8-4.8); Lymphocytes % 22.4 %; Mean Corpuscular HGB Conc 33.4 g/dL (30-55); Mean Corpuscular Hemoglobin 29.8 pg (27-33); Mean Corpuscular Volume 89.3 fl (85-98); Mean Platelet Volume 9.9 fL (7.4-10.4); Monocytes # 0.4 10^3/uL (0.2-0.9); Neutrophils # 5.27 10^3/uL (1.8-7.7); Neutrophils % 69.2 %; Nucleated Red Blood Cells % 0 %; Platelet Count 393 10^3/cmm (157-399); Red Blood Count 5.16 10^6/uL (3.85-5.65); Red Cell Distribution Width 13.1 % (12.1-15.1); White Blood Count 7.62 10^3/uL (3.29-11.43)
[2023-08-07 10:36] LABS: Alanine Aminotransferase 28 U/L (0-33); Albumin Level 4.5 g/dL (3.5-5.2); Alkaline Phosphatase 71 U/L (35-105); Anion Gap 15.9 (5-19); Aspartate Amino Transferase 19 U/L (0-32); Blood Urea Nitrogen 9 mg/dL (6-20); Calcium 9.8 mg/dL (8.5-10.5); Carbon Dioxide 23 mmol/L (22-29); Chloride 104 mmol/L (98-107); Globulin 3.4 g/dL (1.3-4.6); Glomerular Filtration Rate 57.6 mL/min (90-130); Glucose 92 mg/dL (65-115); Osmolality Calculated 286 mOsm/kg (285-295); Potassium 3.9 mmol/L (3.5-5.1); Sodium 139 mmol/L (136-145); Total Bilirubin 0.5 mg/dL (0.15-1.2); Total Protein 7.9 g/dL (6.6-8.7)
[2023-08-07 10:46] LABS: Add Urine Microscopic? YES; Bilirubin Urine 1+ (Negative); Blood Urine Neg (Negative); Glucose Urine UA Norm (Normal); Ketones Urine Negative (Negative); Leukocyte Esterase Urine Trace (Negative); Nitrate Urine Negative (Negative); Protein Urine Neg (Negative); Urine Appearance Clear (CLEAR); Urine Color Yellow (Yellow); Urobilinogen Urine Neg (Negative); pH Urine 5 (5-7)
[2023-08-07 10:53] LABS: Add Urine Culture? No; Amorphous Sediment Urine 2+ /hpf; Mucus Urine 2+ /hpf; RBC Urine 0-4 /hpf (0-2); Squamous Epithelial Cell Urine 0-4 /hpf (0-5); WBC Urine 0-4 /hpf (0-5)
[2023-08-15] VITALS (12 sets, daily range): BP systolic 91–150; BP diastolic 51–92; PULSE 58–79; RESP 12–18; TEMP 36.1–37.1; O2SAT 95–100; BMI 42.0
[2023-08-15] MEDS: scopolamine 1.5 Patch 1 PATCH TRANSDERMA (10:01)
[2023-08-15] MEDS: sodium chloride 0.9% 1,000 ML 30 ML IV (10:02)
[2023-08-15] MEDS: sodium chloride 0.9% 500 ML IV (10:02)
--- NOTE | 2023-08-15 10:50 | P.ANESUD_ITS ---
Pre-Anesthetic Update Pre-Anesthetic Assessment: Date of Surgery/Procedure: 08/15/23 Preop Maryellen gnosis: Desire permanent sterilization Proposed Procedure: Operation Date: 08/15/23 10:35 Proposed Procedures p Laparoscopic Salpingectomy(Bilateral) - Laureano Mccabe MD Any changes to Pre-Anesthetic Assessment?: No Last Intake: Intake Last Liquid Date 08/14/23 Last Liquid Time 21:00 Last Solid Date 08/14/23 Last Solid Time 21:00 Vitals: Temperature 97.7 F 08/15/23 09:40 Temperature Source Temporal Artery S can 08/15/23 09:40 Pulse Rate 65 08/15/23 09:40 Pulse Rhythm Regular 08/15/23 09:24 Pulse Strength 3+ Normal 08/15/23 09:24 Respiratory Rate 18 08/15/23 09:40 Blood Pressure 150/92 08/15/23 09:40 Blood Pressure Roberta n 111 08/15/23 09:40 Pulse Oximetry 98 08/15/23 09:40 Oxygen Delivery Me thod Room Air 08/15/23 09:40 Exam: Pre-Anes Outpt Exam: alert, oriented x 3, clear to auscultation bilaterally and regular rate & rhythm Cardiac Studies: No Data to Display
--- NOTE | 2023-08-15 11:42 | W.PM.OPSUD ---
Surgery/Procedure H&P Update DATE OF PROCEDURE: August 15, 2023 DATE H&P PERFORMED: 08/07/23 H&P UPDATE INFORMATION: I have reviewed H&P completed within last 30 days, I have examined patient prior to procedure and No changes to prior documentation PREOP DIAGNOSIS: Desire permanent sterilization PLANNED PROCEDURE: Operation Date: 08/15/23 10:35 Proposed Procedures p Laparoscopic Salpingectomy(Bilateral) - Laureano Mccabe MD
[2023-08-15] MEDS: ceFAZolin 3,000 MG in sodium chloride 0.9% (plus) 100 ML 200 MG IV (11:56)
[2023-08-15] MEDS: BUPivacaine 0.5% INJ 10 mL INJECTION (12:40)
--- NOTE | 2023-08-15 13:03 | PM.OP ---
Operative Report Date of procedure: August 15, 2023 Pre-op diagnosis: Desire permanent sterilization Post-op diagnosis: same Procedure done: Laparoscopic bilateral salpingectomy Specimens removed/disposition: Left and right fallopian tubes Surgeon: Laureano Mccabe MD Estimated blood loss (mL): 5 IV fluids (mL): 700 Urine output (mL): 300 Complications: None Procedure: After informed consent, the patient was taken to the operating room where general anesthesia was administered. She was placed in the dorsal lithotomy position and prepped and draped in sterile fashion. Pre-Procedure Time-Out verifying the correct patient identity, correct procedure verified with consent, correct site and side, correct patient position, availability of correct implants and any special equipment or requirements was performed and acknowledge by the OR team. The patient was examined under anesthesia and found to have a normal uterus with normal adnexa. A weighted speculum was placed in the vagina, and the anterior lip of cervix was grasped with the single toothed tenaculum. A uterine manipulator was advanced into the endocervical canal and uterus. The tenaculum was removed after uterine manipulator was secured. The speculum was removed from the vagina. An intraumbilical incision was made with a scalpel. While tenting up on the abdomen, a Verres needle was admitted into the intra-abdominal cavity. A saline drop test was performed and noted to be within normal limits. Pneumoperitoneum was attained with 4 liters of carbon dioxide. The Verres needle was removed. A 5 mm Opitc view trocar and sleeve were admitted into the abdomen and laparoscopic confirmation of location was achieved. A second incision was made 3 cm above the symphysis pubis, and a 5 mm trocar sleeves were admitted into the abdomen under direct laparoscopic visualization without complication. A survey revealed normal abdominal anatomy. A 5 mm blunt probe was advanced through the second trocar sleeve, and light manipulation of ovaries and uterus to assess the posterior aspects was performed. The pelvic survey shows normal uterus, left and right adnexa. The left ovary was noted with a follicular cyst. The patient was placed into Trendelenburg position. The fallopian tubes were inspected bilaterally and the fimbriated ends of the fallopian tubes were visualized bilaterally. Attention was then directed to the right side. The fallopian tube and mesosalpinx were grasped and the underlying mesosalpinx was cauterized and cut using the Ligasure device. Serial cauterization and cutting was used to separate the fallopian tube from the underlying mesosalpinx until it could be amputated cutting it approximated 2 cm from the cornua. Attention was then turned to the contralateral fallopian tube, which was removed in similar fashion. Both specimens were removed through the trocar and sent to pathology. The instruments were removed. The suprapubic trocar port was removed under direct visualization insuring good hemostasis. The carbon dioxide was allowed to escape from the abdomen. The intraumbilical trocar sleeve was withdrawn under visualization with laparoscope in the sleeve to insure hemostasis. The skin incisions were closed with 3-O Monocryl subcuticular stich and Dermabond. The instruments were removed from the vagina, and excellent hemostasis was noted. The patient tolerated the procedure well, and sponge, lap and needle count were correct times two. The patient was taken to the recovery room in good condition.
--- NOTE | 2023-08-15 14:35 | ANE.PACU2 ---
Inpatient post-anesthesia follow up: Airway intact: Yes Vital signs: Temperature 97.8 F Pulse Rate 67 Respiratory Rate 16 Blood Pressure 101/68 Pulse Oximetry 96 Oxygen Delivery Me thod Room Air Oxygen Flow Rate Fraction of Inspir ed Oxygen Hydration adequate: Yes Nausea and vomiting: No Pain level: 1 Mental status: Baseline
== END 2023-08-15 14:37 | disposition home or self-care (01) ==
PROVIDERS: PCP Family Medicine; Visit Provider Obstetrics & Gynecology
PROC: (CPT 58661; principal; 2023-08-15 10:25)
DX: Z30.2 Encounter for sterilization (principal)
CPT/HCPCS: 58661; 36415; 80053; 81001; 81025; 85025; 86850; 86900; 88302; J0690; J1100; J1200; J2250; J2405; J2704; J2710; J3010; J3490; J7030; J7040

== ENCOUNTER 2023-08-19 10:36 | Emergency (ER) | payer BC, MEDICAID, SELFPAY ==
[2023-08-19 11:19] VITALS: BP 128/85; PULSE 65; RESP 15; TEMP 36.9; O2SAT 98
[2023-08-19 12:20] LABS: Basophils % 0.5 %; Eosinophils # 0.2 10^3/uL (0.0-0.8); Eosinophils % 3.7 %; Hematocrit 43.1 % (36-47); Lymphocytes # 1.7 10^3/uL (0.8-4.8); Lymphocytes % 26.3 %; Mean Corpuscular HGB Conc 32.5 g/dL (30-55); Mean Corpuscular Hemoglobin 30.1 pg (27-33); Mean Corpuscular Volume 92.7 fl (85-98); Mean Platelet Volume 10.9 fL (7.4-10.4); Monocytes # 0.3 10^3/uL (0.2-0.9); Neutrophils # 4.16 10^3/uL (1.8-7.7); Neutrophils % 64.3 %; Nucleated Red Blood Cells % 0 %; Platelet Count 313 10^3/cmm (157-399); Red Blood Count 4.65 10^6/uL (3.85-5.65); Red Cell Distribution Width 13.2 % (12.1-15.1); White Blood Count 6.46 10^3/uL (3.29-11.43)
--- NOTE | 2023-08-19 12:25 | W.ED.GENADLT ---
HPI - General Adult General: Chief complaint: General Medical Stated complaint: post surg abd pain, sweating, fluid discharge Time Seen by Provider: 08/19/23 11:47 History of Present Illness: 32-year-old female presents to the emergency department with concerns that her postoperative laparoscopic surgery site is itching and having a small amount of fluid noted around the surgical site at her umbilicus. Patient states that she is seeing her FINANCIAL ACCOUNTING MANAGER and was advised that that is normal transudative healing fluid but states that she feels like the area is becoming more itchy and wanted to have it evaluated. She denies nausea vomiting fevers chills or night sweats. She does endorse vague generalized abdominal discomfort/pain. She denies fevers chills or night sweats. She states she does feel like she may be intermittently sweating but is currently not having any diaphoresis. Review of Systems General: Reports: 10 or more systems reviewed and unremarkable except in HPI and below Skin/Breast: Reports: pruritus and erythema PFSH ED PFSH: Medical History Complication of section wound X 2 Surgical History History of laparoscopic cholecystectomy History of Family History Grandmother Bleeding disorder maternal Diabetes maternal Stroke paternal Mother Diabetes Heart disease Denies family history of Colon cancer Ovarian cancer Clotting disorder Hyperlipidemia Breast cancer Anesthesia complication Hypertension Uterine cancer Thyroid disease Social History Smoking and tobacco/nicotine status: never used tobacco/nicotine Alcohol intake: never Substance/Drug Use: never Physical Exam Narrative: EXAM NARRATIVE: General: Alert, no acute distress. Skin: Warm, dry, Intact. Head: Normocephalic, atraumatic. Neck: Supple, trachea midline. Eye: Extraocular movements are intact. PERRLA Ears, nose, mouth and throat: mucosa moist. Cardiovascular: Regular, Normal peripheral perfusion. Respiratory: Lungs are clear to auscultation, respirations are non-labored, breath sounds are equal, Symmetrical chest wall expansion. Gastrointestinal: Soft, Nontender, Non distended, Normal bowel sounds. Skin: Postoperative surgical site at the umbilicus is well-approximated no obvious signs of infection. There is some transudative fluid noted in the opening of the umbilicus, surgical skin adhesive is present there is no obvious purulent drainage. She does have a small area of cellulitis/irritation to the superior aspect of the umbilicus. Musculoskeletal: Normal ROM, no deformity. Neurological: Alert and oriented, No focal neurological deficit observed. Psychiatric: Cooperative, appropriate mood & affect. Course Vital Signs: Vital signs: Vital Signs Temperature 98.4 F 08/19/23 12:43 Pulse Rate 65 08/19/23 12:43 Respiratory Rate 15 08/19/23 12:43 Blood Pressure 128/85 08/19/23 12:43 Pulse Oximetry 98 08/19/23 12:43 Oxygen Delivery Me thod Room Air 08/19/23 11:19 MDM - General Adult Medical Decision Making Physical exam completed document I did obtain a CBC and CMP which appear to be relatively normal. I did contact Dr. Mccabe to discuss the patient's presentation and concerns and advised him I would start her on an antibiotic and he recommended that she continue her follow-up appointment as scheduled. Differential Diagnosis Normal healing process, cellulitis, transudative discharge, Medical Records I reviewed the patient's medical records. Lab Data I reviewed the patient's lab results. 08/19/23 11:58 08/19/23 11:58 Laboratory Results WBC 6.46 10^3/uL (3.29-11.43) 08/19/23 11:58 RBC 4.65 10^6/uL (3.85-5.65) 08/19/23 11:58 Hgb 14.00 g/dL (11.27-16.99) 08/19/23 11:58 Hct 43.1 % (36-47) 08/19/23 11:58 MCV 92.7 fl (85-98) 08/19/23 11:58 MCH 30.1 pg (27-33) 08/19/23 11:58 MCHC 32.5 g/dL (30-55) 08/19/23 11:58 RDW 13.2 % (12.1-15.1) 08/19/23 11:58 Plt Count 313 10^3/cmm (157-399) 08/19/23 11:58 MPV 10.9 fL (7.4-10.4) H 08/19/23 11:58 Neut % (Auto) 64.3 % 08/19/23 11:58 Lymph % (Auto) 26.3 % 08/19/23 11:58 [place] % (Auto) 5.0 % 08/19/23 11:58 Eos % (Auto) 3.7 % 08/19/23 11:58 Baso % (Auto) 0.5 % 08/19/23 11:58 Neut # (Auto) 4.16 10^3/uL (1.8-7.7) 08/19/23 11:58 Lymph # (Auto) 1.7 10^3/uL (0.8-4.8) 08/19/23 11:58 [place] # (Auto) 0.3 10^3/uL (0.2-0.9) 08/19/23 11:58 Eos # (Auto) 0.2 10^3/uL (0.0-0.8) 08/19/23 11:58 Baso # (Auto) 0.0 10^3/uL (0.0-0.1) 08/19/23 11:58 Nucleated RBC % (auto) 0 % 08/19/23 11:58 Nucleated RBCs # 0.0 /100WBC 08/19/23 11:58 Sodium Cancelled 08/19/23 11:58 Potassium Cancelled 08/19/23 11:58 Chloride Cancelled 08/19/23 11:58 Carbon Dioxide Cancelled 08/19/23 11:58 Anion Gap Cancelled 08/19/23 11:58 BUN Cancelled 08/19/23 11:58 Creatinine Cancelled 08/19/23 11:58 GFR Calculation Cancelled 08/19/23 11:58 Glucose Cancelled 08/19/23 11:58 Calculated Osmolality Cancelled 08/19/23 11:58 Lactic Acid 0.8 mmol/L (0.5-2.2) 08/19/23 11:58 Calcium Cancelled 08/19/23 11:58 Total Bilirubin Cancelled 08/19/23 11:58 AST Cancelled 08/19/23 11:58 ALT Cancelled 08/19/23 11:58 Alkaline Phosphatase Cancelled 08/19/23 11:58 Total Protein Cancelled 08/19/23 11:58 Albumin Cancelled 08/19/23 11:58 Globulin Cancelled 08/19/23 11:58 Procalcitonin Cancelled 08/19/23 11:58 Urine Color Yellow (Yellow) 08/19/23 12:33 Urine Appearance Hazy (CLEAR) A 08/19/23 12:33 Urine pH 5 (5-7) 08/19/23 12:33 Ur Specific [place] 1.020 (1.005-1.030) 08/19/23 12:33 Urine Protein Trace (Negative) 08/19/23 12:33 Urine Glucose (UA) Norm (Normal) 08/19/23 12:33 Urine Ketones 1+ (Negative) H 08/19/23 12:33 Urine Blood 3+ (Negative) H 08/19/23 12:33 Urine Nitrate Negative (Negative) 08/19/23 12:33 Urine Bilirubin Neg (Negative) 08/19/23 12:33 Urine Urobilinogen Norm mg/dL (Negative) 08/19/23 12:33 Ur Leukocyte Esterase Negative (Negative) 08/19/23 12:33 Urine RBC 25-40 /hpf (0-2) H 08/19/23 12:33 Urine WBC 0-4 /hpf (0-5) H 08/19/23 12:33 Ur Squamous Epith Cells 0-4 /hpf (0-5) H 08/19/23 12:33 Amorphous Sediment Not Reportable 08/19/23 12:33 Urine Bacteria Trace /hpf (NONE) 08/19/23 12:33 Urine Mucus Trace /hpf 08/19/23 12:33 No radiology studies performed this visit Discharge Plan Discharge Patient Disposition: Home Clinical Impression: Cellulitis of umbilicus Condition: Stable Prescriptions: New amoxicillin-pot clavulanate 875-125 mg tablet 1 tab PO BID 7 Days Qty: 14 0RF No Action atorvastatin [Lipitor] 10 mg tablet 10 mg PO DAILY bupropion HCl [Wellbutrin SR] 100 mg tablet sustained-release 12 hr 150 mg PO DAILY escitalopram oxalate [Lexapro] 5 mg tablet 5 mg PO DAILY ibuprofen 800 mg tablet 800 mg PO TID PRN (Reason: pain) Qty: 60 0RF hydrocodone-acetaminophen 5-325 mg tablet 1 tab PO Q4H PRN (Reason: pain) Qty: 20 0RF acetaminophen 325 mg capsule 325 mg PO Q4H PRN (Reason: fever or pain) Qty: 60 0RF Discharge Orders: Discharge ED (Routine); Ordered 08/19/23 Ordered By: Rupesh Moss Referrals: Fanta Serrano MD [Primary Care Provider] - Discharge Diet: Usual diet Discharge Activity: Resume usual activity Patient Instructions: Opioid Safety, Pain Management Activity Restrictions/Additional Instructions: Activity Restrictions/Additional Instructions: Thank you for choosing [facility] for your healthcare needs today. Please realize that you were seen in the Emergency Department and that we are providing you with an emergency medical screening exam and this may not be a complete and all inclusive of all the testing and or medical work-up that you may need to determine your ailment or severity of your illness. It is very important that you follow-up as instructed with your Primary care provider or Specialist for additional evaluation and to discuss your medical treatment plan. Coding Level of Care Code ED Machine Bander And Cellophaner Helper for Yohana Brower
[2023-08-19 12:43] VITALS: BP 128/85; PULSE 65; RESP 15; TEMP 36.9; O2SAT 98
[2023-08-19 12:47] LABS: Lactic Sepsis W/Reflex 0.8 mmol/L (0.5-2.2)
[2023-08-19 13:30] LABS: Add Urine Microscopic? YES; Bilirubin Urine Neg (Negative); Blood Urine 3+ (Negative); Glucose Urine UA Norm (Normal); Ketones Urine 1+ (Negative); Leukocyte Esterase Urine Negative (Negative); Nitrate Urine Negative (Negative); Protein Urine Trace (Negative); Urine Appearance Hazy (CLEAR); Urine Color Yellow (Yellow); Urobilinogen Urine Norm (Negative); pH Urine 5 (5-7)
[2023-08-19 13:31] LABS: Add Urine Culture? Yes; Bacteria Urine TRACE /hpf; Mucus Urine TRACE /hpf; RBC Urine 25-40 /hpf (0-2); Squamous Epithelial Cell Urine 0-4 /hpf (0-5); WBC Urine 0-4 /hpf (0-5)
== END 2023-08-19 12:57 | disposition home or self-care (01) ==
PROVIDERS: Emergency Provider Internal Medicine; PCP Family Medicine
DX: L03.316 Cellulitis of umbilicus (principal); Z98.890 Other specified postprocedural states
CPT/HCPCS: 81001; 83605; 85025; 87086; 99283

== ENCOUNTER 2024-10-22 15:17 | Emergency (ER) | payer BC, MEDICAID, SELFPAY ==
[2024-10-22 15:23] VITALS: BP 128/90; PULSE 67; RESP 16; TEMP 36.5; O2SAT 98
--- NOTE | 2024-10-22 15:25 | ECG_ITS ---
[facility] Date: 2024-10-22 Pat Name: Hillary Watson Department: Room: Gender: Female Research Technician: : 1990 Requested By: Moni Cantu Order Number: [id number] Holli MD: Jonathan Bartlett M.D. Measurements Intervals [place] Rate: 70 P: 24 ME: 175 QRS: 60 QRSD: 106 T: 29 QT: 368 QTc: 399 Interpretive Statements SINUS RHYTHM NONSPECIFIC T-WAVE ABNORMALITY Compared to ECG 07/24/2023 21:57:55 Possible ischemia no longer present T-wave abnormality still present Electronically Signed On 10-24-2024 08:59:53 CDT by Jonathan Bartlett M.D. [email or web address] [id number]
--- NOTE | 2024-10-22 15:28 | XRR_ITS ---
PROCEDURE INFORMATION: Exam: XR Chest Exam date and time: 10/22/2024 3:39 PM Age: 33 years old Clinical indication: Shortness of breath; Additional info: Short of breath, cp TECHNIQUE: Imaging protocol: Radiologic exam of the chest. Views: 1 view. COMPARISON: CR XR chest 1V portable [id number] 07/24/2023 8:08 PM FINDINGS: Lungs: Unremarkable. No consolidation. Pleural spaces: Unremarkable. No pleural effusion. No pneumothorax. Heart/Mediastinum: Unremarkable. No cardiomegaly. Bones/joints: Unremarkable. XR/XR chest 1V portable [id number] IMPRESSION: No acute findings.
[2024-10-22 15:40] VITALS: PULSE 76; O2SAT 97
--- NOTE | 2024-10-22 16:02 | W.ED.CHESTPA ---
HPI - Chest Pain General: Chief Complaint: Chest Pain Stated Complaint: chest pain into back, hurts to breathe Time Seen by Provider: 10/22/24 15:28 History of Present Illness: Patient is a 33-year-old female with history of HLD, depression, presents to the emergency room with chest pain into her back. Patient has a history of early heart disease, her mother had a heart attack in her 30s, and at age 40. She is a non-smoker. This started this morning, after being awake. It felt like an indigestion feeling on the central right side of her chest, before she had her gallbladder removed with what she would describe it as. It penetrated through to the back. She is a nondrinker. It feels like it is hard to take a deep breath. She had nausea this morning, however this feeling, and her reflux type indigestion feeling has resolved. The chest discomfort has worsened, with the feeling of it on her distal scapula posteriorly. Denies recent illness, fevers. Denies previous cardiac event. Associated symptoms: Deny abdominal pain, dyspnea, fever(s), nausea, palpitations or vomiting Related Data Home Medications ?Medication ?Instructions ?Recorded ?Confirmed atorvastatin 10 mg tablet (Lipitor) 10 mg PO DAILY 07/10/23 10/02/23 bupropion HCl 100 mg tablet,12 hr 150 mg PO DAILY 08/07/23 10/02/23 sustained-release (Wellbutrin SR) escitalopram oxalate 5 mg tablet 5 mg PO DAILY 08/07/23 10/02/23 (Lexapro) Previous Rx's ?Medication ?Instructions ?Recorded acetaminophen 325 mg capsule 325 mg PO Q4H PRN fever or pain 08/15/23 #60 caps ibuprofen 800 mg tablet 800 mg PO TID PRN pain #60 tabs 08/15/23 diclofenac sodium 75 mg 75 mg PO BID #30 tabs 10/22/24 tablet,delayed release Allergies Allergy/AdvReac Type Severity Reaction Status Date / Time No Known Allergies Allergy Verified 10/02/23 10:09 Review of Systems General: Reports: 10 or more systems reviewed and unremarkable except in HPI and below Const: Denies: fever(s) or chills ENMT: Denies: throat pain or dry mouth Card: Reports: chest pain; Denies: palpitations, irregular heart rhythm or edema Resp: Denies: dyspnea or non-productive cough GI: Denies: abdominal pain, nausea or vomiting : Denies: flank pain or difficulty voiding Musc: Denies: neck pain or back pain Skin/Breast: Denies: rash or pruritus Neuro: Denies: headache(s) or numbness in extremities Psych: Denies: anxiety or depression (Chronic, controlled) PFS ED PFSH: Medical History Complication of section wound X 2 Surgical History History of laparoscopic cholecystectomy History of Family History Grandmother Bleeding disorder maternal Diabetes maternal Stroke paternal Mother Diabetes Heart disease Denies family history of Colon cancer Ovarian cancer Clotting disorder Hyperlipidemia Breast cancer Anesthesia complication Hypertension Uterine cancer Thyroid disease Physical Exam Const: COMMON NORMALS: no acute distress, patient oriented x3 and alert GENERAL APPEARANCE: cooperative HENMT: COMMON NORMALS: normocephalic and atraumatic HEAD & SCALP: normocephalic and atraumatic Neck/C-Spine: COMMON NORMALS: full ROM and no lymphadenopathy Lymph: LYMPHATIC: no lymphadenopathy noted Chest: COMMONS NORMALS: normal inspection of the chest and normal palpation of entire chest wall Resp: COMMON NORMALS: normal respiratory effort, No retractions and clear to auscultation bilaterally AUSCULTATION: clear to auscultation bilaterally Cardio: COMMON NORMALS: regular rate, regular rhythm and No murmurs present (Cardio) RATE: regular rate RHYTHM: regular rhythm GI: COMMON NORMALS: Normal to inspection, nondistended, normoactive bowel sounds present, Soft to palpation and non-tender PALPATION: Yes Soft to palpation : COMMON NORMALS: Yes no CVA tenderness BLADDER/KIDNEY EXAM: Yes no CVA tenderness Back/Pelvis: COMMON NORMALS: no CVA tenderness Extremity: COMMON NORMALS: normal to inspection and full ROM Neuro: COMMON NORMALS: patient oriented x3 and CN's II-XII intact bilaterally SENSORIUM/ORIENTATION: Yes alert Psych: COMMON NORMALS: mental status grossly normal, Normal thought process present and cooperative THOUGHT PROCESS: Normal thought process present Skin: COMMON NORMALS: no rashes or lesions noted and no wounds GENERAL SKIN EXAM: no rashes or lesions noted Course Vital Signs: Vital signs: Vital Signs Temperature 97.7 F 10/22/24 15:23 Pulse Rate 83 10/22/24 16:25 Respiratory Rate 16 10/22/24 15:23 Blood Pressure 143/95 10/22/24 17:20 Pulse Oximetry 97 10/22/24 16:25 Oxygen Delivery Me thod Room Air 10/22/24 16:25 MDM - Chest Pain Medical Decision Making Patient is 33-year-old female with chest pain, somewhat atypical, started at rest, radiated to her back. D-dimer is negative, ruling out dissection, and pulmonary embolism. Initial troponin is less than 6. That her pain started early this morning, and therefore no reason to follow additional troponin since this would already be elevating if ACS. Suspect with clinical history, patient has association of costochondritis. Information given to patient, and Toradol x 1. Medical Records I reviewed the patient's medical records. Lab Data I reviewed the patient's lab results. 10/22/24 16:07 10/22/24 16:07 Radiology Impressions Chest X-Ray 10/22/24 15:28 IMPRESSION: No acute findings. Laboratory Results WBC 7.75 10^3/uL (3.29-11.43) 10/22/24 16:07 RBC 4.55 10^6/uL (3.85-5.65) 10/22/24 16:07 Hgb 13.60 g/dL (11.27-16.99) 10/22/24 16:07 Hct 42.1 % (36-47) 10/22/24 16:07 MCV 92.5 fl (85-98) 10/22/24 16:07 MCH 29.9 pg (27-33) 10/22/24 16:07 MCHC 32.3 g/dL (30-55) 10/22/24 16:07 RDW 13.1 % (12.1-15.1) 10/22/24 16:07 Plt Count 341 10^3/cmm (157-399) 10/22/24 16:07 MPV 9.9 fL (7.4-10.4) 10/22/24 16:07 Neut % (Auto) 58.7 % 10/22/24 16:07 Lymph % (Auto) 31.4 % 10/22/24 16:07 [place] % (Auto) 5.9 % 10/22/24 16:07 Eos % (Auto) 3.1 % 10/22/24 16:07 Baso % (Auto) 0.6 % 10/22/24 16:07 Neut # (Auto) 4.55 10^3/uL (1.8-7.7) 10/22/24 16:07 Lymph # (Auto) 2.4 10^3/uL (0.8-4.8) 10/22/24 16:07 [place] # (Auto) 0.5 10^3/uL (0.2-0.9) 10/22/24 16:07 Eos # (Auto) 0.2 10^3/uL (0.0-0.8) 10/22/24 16:07 Baso # (Auto) 0.1 10^3/uL (0.0-0.1) 10/22/24 16:07 Nucleated RBC % (auto) 0 % 10/22/24 16:07 Nucleated RBCs # 0.0 /100WBC 10/22/24 16:07 D-Dimer <= 0.27 ug/mLFEU (0-0.59) 10/22/24 16:07 Sodium 139 mmol/L (136-145) 10/22/24 16:07 Potassium 4.3 mmol/L (3.5-5.1) 10/22/24 16:07 Chloride 102 mmol/L (98-107) 10/22/24 16:07 Carbon Dioxide 24 mmol/L (22-29) 10/22/24 16:07 Anion Gap 17.3 (5-19) 10/22/24 16:07 BUN 14 mg/dL (6-20) 10/22/24 16:07 Creatinine 0.9 mg/dL (0.5-0.9) 10/22/24 16:07 GFR Calculation 72.1 mL/min (90-130) L 10/22/24 16:07 Glucose 101 mg/dL (65-115) 10/22/24 16:07 Calculated Osmolality 289 mOsm/kg (285-295) 10/22/24 16:07 Calcium 9.7 mg/dL (8.5-10.5) 10/22/24 16:07 Total Bilirubin 0.2 mg/dL (0.15-1.2) 10/22/24 16:07 AST 25 U/L (0-32) 10/22/24 16:07 ALT 32 U/L (0-33) 10/22/24 16:07 Alkaline Phosphatase 57 U/L (35-105) 10/22/24 16:07 Troponin T Baseline < 6 ng/L (0-10) 10/22/24 16:07 Total Protein 7.2 g/dL (6.6-8.7) 10/22/24 16:07 Albumin 4.3 g/dL (3.5-5.2) 10/22/24 16:07 Globulin 2.9 g/dL (1.3-4.6) 10/22/24 16:07 Lipase 44 U/L (13-60) 10/22/24 16:07 Influenza A (PCR) Negative (Negative) 10/22/24 15:55 Influenza Type B (PCR) Negative (Negative) 10/22/24 15:55 RSV (PCR) Negative (Negative) 10/22/24 15:55 SARS-CoV-2 (PCR) Negative (Negative) 10/22/24 15:55 XR interpretation done by ED provider, pending radiology final review ED provider radiology interpretation(s): no acute EKG Data EKG 1: Interpretation: Normal sinus rhythm Discharge Plan Discharge Patient Disposition: Home Clinical Impression: Costalchondritis Condition: Stable Prescriptions: New diclofenac sodium 75 mg tablet,delayed release (DR/EC) 75 mg PO BID Qty: 30 0RF No Action atorvastatin [Lipitor] 10 mg tablet 10 mg PO DAILY bupropion HCl [Wellbutrin SR] 100 mg tablet sustained-release 12 hr 150 mg PO DAILY escitalopram oxalate [Lexapro] 5 mg tablet 5 mg PO DAILY ibuprofen 800 mg tablet 800 mg PO TID PRN (Reason: pain) Qty: 60 0RF acetaminophen 325 mg capsule 325 mg PO Q4H PRN (Reason: fever or pain) Qty: 60 0RF Discharge Orders: Discharge ED (Routine); Ordered 10/22/24 Ordered By: Moni Cantu Referrals: Fanta Serrano MD [Primary Care Provider, Family Practice] Discharge Diet: Low Salt Patient Instructions: Patient Portal & [facility] Instructions, Costochondritis (ED) Activity Restrictions/Additional Instructions: Deep breathing exercises as we discussed. Is important to follow-up with your primary care physician for any additional management. You can return to the ED for additional screening if chest pain reoccurs, or worsens. Your workup today is negative, no DVT or PE, no acute cardiac issue. As we discussed, obtain famotidine/Pepcid for your belly due to NSAIDs for treatment of your costochondritis. Print Language: Guyanese Coding Level of Care Code ED Component Prep Operator for Yohana Brower
[2024-10-22 16:03] VITALS: BP 154/97; PULSE 75; O2SAT 98
[2024-10-22 16:19] LABS: Hematocrit 42.1 % (36-47); Hemoglobin 13.60 g/dL (11.27-16.99); Mean Corpuscular HGB Conc 32.3 g/dL (30-55); Mean Corpuscular Hemoglobin 29.9 pg (27-33); Mean Corpuscular Volume 92.5 fl (85-98); Nucleated Red Blood Cells % 0 %; Platelet Count 341 10^3/cmm (157-399); Red Blood Count 4.55 10^6/uL (3.85-5.65); White Blood Count 7.75 10^3/uL (3.29-11.43)
[2024-10-22 16:25] VITALS: BP 137/94; PULSE 83; O2SAT 97
[2024-10-22 16:43] LABS: Respiratory Syncytial Virus Ce NEGATIVE (Negative); SARS-CoV-2 PCR NEGATIVE (Negative)
[2024-10-22 16:47] LABS: Troponin(5th) Baseline < 6 ng/L (0-10)
[2024-10-22 16:48] LABS: Alanine Aminotransferase 32 U/L (0-33); Albumin Level 4.3 g/dL (3.5-5.2); Alkaline Phosphatase 57 U/L (35-105); Blood Urea Nitrogen 14 mg/dL (6-20); Calcium 9.7 mg/dL (8.5-10.5); Carbon Dioxide 24 mmol/L (22-29); Chloride 102 mmol/L (98-107); Creatinine Clr Calc Pharmacy 120.6323; Globulin 2.9 g/dL (1.3-4.6); Glucose 101 mg/dL (65-115); Lipase 44 U/L (13-60); Osmolality Calculated 289 mOsm/kg (285-295); Sodium 139 mmol/L (136-145); Total Protein 7.2 g/dL (6.6-8.7)
[2024-10-22 16:52] LABS: Anion Gap 17.3 (5-19); Aspartate Amino Transferase 25 U/L (0-32); Potassium 4.3 mmol/L (3.5-5.1)
[2024-10-22 17:20] VITALS: BP 143/95
[2024-10-22 18:11] VITALS: BP 154/84; PULSE 76; O2SAT 98
== END 2024-10-22 18:11 | disposition home or self-care (01) ==
PROVIDERS: Emergency Provider Physician Assistant; PCP Family Medicine
DX: M94.0 Chondrocostal junction syndrome [Tietze] (principal); Z11.52 Encounter for screening for COVID-19
CPT/HCPCS: 36415; 71045; 80053; 83690; 84484; 85025; 85378; 87637; 93005; 96372; 99285; J1885

== ENCOUNTER 2024-11-24 03:58 | Emergency (ER) | payer BC, MEDICAID, SELFPAY ==
--- NOTE | 2024-11-24 04:23 | XRR_ITS ---
PROCEDURE INFORMATION: Exam: XR Left Ankle Exam date and time: 11/24/2024 5:50 AM Age: 33 years old Clinical indication: Injury or trauma; Other: Rolled ankle; Blunt trauma; Patient tripped walking down steps and rolled left ankle. C/O pain. TECHNIQUE: Imaging protocol: Radiologic exam of the left ankle. Views: 1 or 2 views. COMPARISON: CR XR knee LT 1-2V [id number] 04/12/2018 8:08 PM FINDINGS: Bones/joints: See Soft tissues finding. Soft tissues: Soft tissue swelling. No radiographic evidence of fracture. XR/XR ankle LT 2V [id number] IMPRESSION: No radiographic evidence of fracture.
[2024-11-24 04:24] VITALS: BP 127/88; PULSE 74; RESP 20; TEMP 37.1; O2SAT 98; BMI 43.8
[2024-11-24] MEDS: HYDROcodone-acetaminophen 5-325 mg Tablet 1 TAB PO (06:14)
--- NOTE | 2024-11-24 06:15 | W.ED.EXTPRO ---
HPI - Extremity Problem General: Chief complaint: Extremity Injury, Lower Stated complaint: left ankle injury Time Seen by Provider: 11/24/24 05:50 Source: patient Mode of arrival: ambulatory Limitations: no limitations History of Present Illness: 33-year-old female states she jumped in a water yesterday and twisted her left ankle. States she has had pain on the lateral portion of the ankle since then has been able to ambulate but it has been painful is rates her pain currently a 6 out of 10 and is improved with rest. Denies any other injuries Associated symptoms: Deny chest pain, fever(s) or rash Related Data Home Medications ?Medication ?Instructions ?Recorded ?Confirmed atorvastatin 10 mg tablet (Lipitor) 10 mg PO DAILY 07/10/23 10/02/23 bupropion HCl 100 mg tablet,12 hr 150 mg PO DAILY 08/07/23 10/02/23 sustained-release (Wellbutrin SR) escitalopram oxalate 5 mg tablet 5 mg PO DAILY 08/07/23 10/02/23 (Lexapro) Previous Rx's ?Medication ?Instructions ?Recorded acetaminophen 325 mg capsule 325 mg PO Q4H PRN fever or pain 08/15/23 #60 caps ibuprofen 800 mg tablet 800 mg PO TID PRN pain #60 tabs 08/15/23 diclofenac sodium 75 mg 75 mg PO BID #30 tabs 10/22/24 tablet,delayed release Allergies Allergy/AdvReac Type Severity Reaction Status Date / Time No Known Allergies Allergy Verified 10/02/23 10:09 Review of Systems Const: Denies: fever(s), chills, body aches or change in appetite ENMT: Denies: throat pain or dental pain Card: Denies: chest pain Resp: Denies: dyspnea GI: Denies: abdominal pain, nausea, vomiting or diarrhea Musc: Reports: extremity pain; Denies: neck pain or back pain Skin/Breast: Denies: rash Neuro: Denies: headache(s) PFSH ED PFSH: Medical History Complication of section wound X 2 Surgical History History of laparoscopic cholecystectomy History of Family History Grandmother Bleeding disorder maternal Diabetes maternal Stroke paternal Mother Diabetes Heart disease Denies family history of Colon cancer Ovarian cancer Clotting disorder Hyperlipidemia Breast cancer Anesthesia complication Hypertension Uterine cancer Thyroid disease Physical Exam Const: COMMON NORMALS: no acute distress, patient oriented x3 and healthy appearing HENMT: COMMON NORMALS: normocephalic and atraumatic HEAD & SCALP: normocephalic and atraumatic Neck/C-Spine: COMMON NORMALS: full ROM and supple Chest: COMMONS NORMALS: normal inspection of the chest Resp: COMMON NORMALS: normal respiratory effort Cardio: COMMON NORMALS: regular rate RATE: regular rate Extremity: COMMON NORMALS: full ROM NARRATIVE EXTREMITY EXAM: Swelling tenderness noted to left lateral ankle no obvious deformities Neuro: COMMON NORMALS: patient oriented x3, moves all extremities and no focal motor deficits Psych: COMMON NORMALS: mental status grossly normal, Normal thought process present and cooperative THOUGHT PROCESS: Normal thought process present Skin: COMMON NORMALS: no rashes or lesions noted and no wounds GENERAL SKIN EXAM: no rashes or lesions noted Course Vital Signs: Vital signs: Vital Signs Temperature 98.7 F 11/24/24 04:24 Pulse Rate 74 11/24/24 04:24 Respiratory Rate 20 H 11/24/24 04:24 Blood Pressure 127/88 11/24/24 04:24 Pulse Oximetry 98 11/24/24 04:24 MDM - Extremity (Nontraumatic) Medical Decision Making Patient presents here with left ankle sprain x-ray shows no fracture patient stable for discharge follow-up PCP return if worsening. Medical Records I reviewed the patient's medical records. XR interpretation done by ED provider, pending radiology final review ED provider radiology interpretation(s): X-ray left ankle no acute fracture Discharge Plan Discharge Patient Disposition: Home Clinical Impression: Ankle sprain and strain Condition: Stable Prescriptions: No Action atorvastatin [Lipitor] 10 mg tablet 10 mg PO DAILY bupropion HCl [Wellbutrin SR] 100 mg tablet sustained-release 12 hr 150 mg PO DAILY escitalopram oxalate [Lexapro] 5 mg tablet 5 mg PO DAILY diclofenac sodium 75 mg tablet,delayed release (DR/EC) 75 mg PO BID Qty: 30 0RF ibuprofen 800 mg tablet 800 mg PO TID PRN (Reason: pain) Qty: 60 0RF acetaminophen 325 mg capsule 325 mg PO Q4H PRN (Reason: fever or pain) Qty: 60 0RF Discharge Orders: Discharge ED (Routine); Ordered 11/24/24 Ordered By: Elvis Mora Referrals: Fanta Serrano MD [Primary Care Provider, Family Practice] Chase Price DPM [Physician, Podiatry] - 4-7 days Discharge Diet: Advance as tolerated Discharge Activity: Resume usual activity Patient Instructions: Ankle Sprain (ED) Print Language: Kinyarwanda Coding Level of Care Code ED Steel Buffer for Yohana Brower
[2024-11-24 06:30] VITALS: BP 122/80; PULSE 89; RESP 16; O2SAT 100
--- NOTE | 2024-11-25 08:02 | DCPLANNER ---
messaged podiatry for er f/u
== END 2024-11-24 06:31 | disposition home or self-care (01) ==
PROVIDERS: Emergency Provider Emergency Medicine; PCP Family Medicine
DX: S93.402A Sprain of unspecified ligament of left ankle, initial encounter (principal); X58.XXXA Exposure to other specified factors, initial encounter
CPT/HCPCS: 73600; 99283; J9999